=== PATIENT | male | born 1935 | race Caucasian/White ===

== ENCOUNTER 2025-04-07 07:04 | Outpatient (REF) | payer SELFPAY ==
--- OUTSIDE RECORDS SUMMARY | 2025-04-02 13:16 | XMS_ITS | Encounter Summary ---
Author Organization [facility] Address [address] [place] [address] Care Team Providers Care Immunology Teacher Name Role Phone Clemencia Gorman MD Primary Care Provider Reason for Visit * Reason Comments Weakness - Generalized Encounter Details Date Type Department Care Team (Late st Contact Info) Description 04/02/2025 1:16 PM EST - 04/06/2025 3:44 PM EST Emergency [facility] Emergency [address] [place] [id number] Volodymyr Zavala MD [address] [address] Arie Bliss MD [address] [place] [id number] Gee Capone MD [address] [place] [id number] Martha Carvalho MD [address] [place] [id number] Joseph Mishra MD [address] [place] [address] Jose Ritter MD [address] [place] [address] Kalin Caceres MD [address] [place] [address] Generalized weakness (Primary Dx); Hematuria, unspecified type; Aspiration pneumonia of right lower lobe, unspecified aspiration pneumonia type ([facility] V24, [facility] V28); Failure to thrive in adult; Leukopenia, unspecified type; Anemia, unspecified type; Chronic renal failure, stage 3a ([facility] V24, [facility] V28); Alzheimer's dementia without behavioral disturbance, psychotic disturbance, mood disturbance, or anxiety, unspecified dementia severity, unspecified timing of dementia onset ([facility] [place], [facility] V28) Discharge Disposition: Home or Self Care Social History Tobacco Use Types Packs/Day Years Used Date Smoking Tobacco: Former Cigarettes 1.5 Q uit: 04/16/1983 Smokeless Tobacco: Never Alcohol Use Standard Drinks/Week Comments No 11.7 (1 standard drink = 0.6 oz pure alcohol) Housing Instability Answer Date Recorde d Are you worried that in the next 2 months you may not have stable housing? No 04/01/2025 Food Access & Nutrition Answer Date Rec orded Do you have access to a vari ety of food including fruits and vegetables? Yes 04/01/2025 Access to Healthcare Answer Date Record ed Within the last 3 months, ho w many times did you visit the emergency department for your medical care? 1 04/01/2025 Health Literacy Answer Date Recorded How often do you need to hav e someone help you when you read instructions, pamphlets, or other written material from your doctor or pharmacy? Always 04/01/2025 Caregiver: How often do you need to have someone help you when you read instructions, pamphlets, or other written material from your doctor or pharmacy? Not on file 04/01/2025 Financial Risk Answer Date Recorded How hard is it for you to pa y for the very basics like food, housing, medical care, and air conditioning / heating? Not very hard 04/01/2025 Transportation Answer Date Recorded Has the lack of transportati on kept you from meetings, work, or from getting things needed for daily living? No Has the lack of transportati on kept you from medical appointments or from getting medications? No 04/01/2025 Social Isolation Answer Date Recorded How often do you feel lonely or isolated from those around you? Not asked 04/01/2025 Food Risk Answer Date Recorded Within the past 12 months we worried whether our food would run out before we got money to buy more. Never true 04/01/2025 Within the past 12 months th e food we bought just didn't last and we didn't have money to get more. Never true 04/01/2025 Dependent Care Answer Date Recorded Do you need help finding or paying for care for your loved ones. For example, child welfare consultant or elderly care for an older adult? Unable to respond 03/29/2025 Education Answer Date Recorded Do you think completing more education or training, like finishing a GED, going to college, or learning a trade, would be helpful for you? No 04/01/2025 Employment and Income Answer Date Recor ded During the last four weeks, have you been actively looking for work? No 04/01/2025 Living Situation Answer Date Recorded What is your living situation? Unrecognized valu e 04/01/2025 Interpersonal Safety Answer Date Record ed Physical Abuse Unrecognized value 03/29/2025 Verbal Abuse Unrecognized value 03/29/2025 Sex and Gender Information Value Date Recorded Sex Assigned at Male 03/29/2025 6:39 PM EST Legal Sex Male 8:57 PM EST Gender Identity Male 03/29/2025 6:39 PM EST Sexual Orientation Choose not to disclose 2024 6:39 PM EST documented as of this encounter Last Filed Vital Signs Vital Sign Reading Time Taken Comments Blood Pressure 110/71 04/06/2025 2:06 PM EST Pulse 102 04/06/2025 2:06 PM EST Temperature 36.6 C (97.9 F) 04/06/2025 2:06 PM EST Respiratory Rate 18 04/06/2025 2:06 PM EST Oxygen Saturation 100% 04/06/2025 2:06 PM EST Inhaled Oxygen Concentration - - Weight 44.5 kg (98 lb) 04/03/2025 9:50 AM EST Height 170.2 cm (5' 7 ) 04/02/2025 11:52 PM EST Body Mass Index 15.35 04/02/2025 11:52 PM EST documented in this encounter Functional Status * Calculated C-SSRS Risk Score (Lifetime/Recent) Answer Date of Assessment Author No Risk Indicated 04/04/2025 9:49 PM EST Bello Lopez RN * [place] Suicide Severity Rating Scale (Screener/Recent Self-Report) Question Answer Date of Assessment Author 1. Wish to be (Past 1 Month) No 025 9:49 PM Bello Morgan RN 2. Non-Specific Active Suici geremias Thoughts (Past 1 Month) No 04/04/2025 9:49 PM Bello Morgan RN 6. Suicidal Behavior (Lifetime) No 5 9:49 PM Bello Morgan RN documented as of this encounter Discharge Instructions * Attachments The following attachments cannot be sent through Care Everywhere. * Hematuria ([place]) documented in this encounter Medications at Time of Discharge amoxicillin-clavula renato (AUGMENTIN) 500-125 mg per tablet Take 1 tablet by mouth every 12 (twelve) hours for 13 doses. 13 each 5 04/07/20 25 aspirin 81 mg EC tablet Take 1 tablet (81 mg total) by mouth 1 (one) time each day. 30 each 11 5 04/01/20 26 atorvastatin (LIPITOR) 40 mg tablet Take 1 tablet (40 mg total) by mouth at bedtime. 30 each 11 5 03/31/20 26 ipratropium-albuter oL (DUONEB) 0.5-2.5 mg/3 mL nebulizer solution Take 3 mL by nebulization 3 (three) times a day. 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 documented as of this encounter Discharge Disposition Disposition Code Departure Means Destination Comment s Home or Self Care Transfer packet printed and given to EMS, report given. Pt assisted to bedpan prior to transport, had a small amount of urine output. Pt transferred to EMS stretcher, departed ED in no acute distress. Belongings sent with pt documented in this encounter Progress Notes * Lucretia Gastelum RN - 04/06/2025 2:33 PM EST 04/06/25 1432 ED Transition Plan ED Transition Plan Other (Comment) (Assisted Facility) Transportation Transportation at discharge Ambulance Company providing transportation [place] What day is the transport expected? 04/06/25 What time is the transport expected? 1530 Final Discharge Disposition Assisted Facility ([facility]) Pt will discharge to [facility] at 3:30pm via [place] ambulance. Pt approved for [facility]p waiver through [facility]. Updated marium Sargent/Dr. Caceres and nurse provided number for nurse report. * Stephen Villanueva MD - 04/06/2025 2:09 PM EST The patient is an 89-year-old who reported feeling very weak during the physical therapy evaluation. He was able to complete bed mobility but was unable to transition to a full [id number]. He required minimal assistance for transfers and could stand for only about five seconds before his knee buckled. He was able to stand three times but could not take any major steps. Given the findings, subacute rehab focusing on strengthening is recommended. * Lucretia Gastelum RN - 04/06/2025 10:56 AM EST [facility] is accepting of patient pending [facility] approval. Message left for son Spoke withmarium Montilla who is accepting of bed offer. Informed [facility] does not have male bed today. Emailsent to Chana PARKERfinancial counselor for [facility] with information on accepting bed offer for [facility]. * Kalin Caceres MD - 04/06/2025 10:46 AM EST S. Case discussed with Dr. Bliss at change of shift, patient in the emergency department for 93-1/2hours, signed out pending continuation of case management for possible short-term rehab disposition. Family are currently weighing options. No acute events during emergency department course. 89-year-old male with Alzheimer's dementia, brought to the emergency department by ambulance under conditions of failure to thrive, recent admission for lower lobe pneumonia with NSTEMI and rhabdomyolysis. O. Examination as documented, vital signs stable and normal. Laboratory studies reviewed, CBC and BMP measured yesterday reveal leukopenia with nonspecific anemia, renal insufficiency stage IIIa. No other clinically significant abnormalities. Abnormal urinalysis without leukocyte esterase or nitrites. Troponin I, lactic acid, magnesium, BNP are all normal. XR Chest 1 View Final Result Stable radiographic appearance of the chest. -------- FINAL REPORT -------- Dictated By: Kevin Kyle Dictated Date: 04/04/2025 10:52 ET Assigned Physician: Kevin Kyle Reviewed and Electronically Signed By: Kevin Kyle Signed Date: 04/04/2025 10:54 ET Workstation ID: [id number] Transcribed By: Self Edit Transcribed Date: 04/04/2025 10:52 ET XR Chest 1 View Final Result FINDINGS/IMPRESSION: Small right pleural effusion with patchy opacities in the right lung could represent infectious/inflammatory process. The left lung is grossly clear. Osteopenia and degenerative changes. -------- FINAL REPORT -------- Dictated By: Augie Jerome Dictated Date: 04/02/2025 15:58 ET Assigned Physician: Augie Jerome Reviewed and Electronically Signed By: Augie Jerome Signed Date: 04/02/2025 16:10 ET Workstation ID: [id number] Transcribed By: Self Edit Transcribed Date: 04/02/2025 16:09 ET A. Impression: 89-year-old male with dementia, failure to thrive, right pleural effusion, opacitieson right lung x-ray, chronic unchanged leukopenia, nonspecific anemia, and renal insufficiency. No hypoxia, tachypnea, increased work of breathing, or other evidence for pneumonia. 3 x-rays performedsince 03/29/2025 are essentially unchanged, setting of emphysema. Patient may benefit from respiratory virus panel though no hypoxia or fever documented. This does not appear to be immediately indicated. Awaiting completion of case management intervention for short-term rehabilitation and disposition. P. Supportive care is ongoing, disposition is pending. 1431: [facility] at 3:30 PM. Supportive care is ongoing, transportation is pending. Social Determinants of Health: Medicare/Medicaid recipient, access to [facility] may be impacted. * Jacqueline Luz, FLORENCIA - 04/06/2025 10:17 AM EST Images from the original note were not included. Speech Language Pathology [facility] WILDLIFE ECOLOGIST TREATMENT NOTE NAME: Ramon Herr DATE OF : 1935 [facility] Pt ID by: Self, Full Name and DATE: 04/06/25 RECOMMENDATIONS: DIET SOLIDS RECOMMENDATIONS: IDDSI Level 4 Pureed Solid DIET LIQUIDS RECOMMENDATIONS: Thin liquids ASPIRATION RISK: Risk for Aspiration: Mild Recommendations: Dysphagia treatment (modified diet with swallow strategies, oral care) Diet Solids Recommendation: IDDSI Level 4 Pureed Solid Diet Liquids Recommendation: Thin liquids Liquid Administration Via: Spoon, Cup, Straw Supervision Level: One to one assist with meals Compensatory Swallowing Strategies: Upright as possible for all oral intake, Alternate solids and liquids, Small bites/sips (consistent oral care) Recommended Medication Route: PO (crushed or whole in puree) Recommended Medication Administration: Crushed (or whole in puree) IMPRESSIONS: WILDLIFE ECOLOGIST ASSESSMENT: WILDLIFE ECOLOGIST Assessment Results: Swallowing impairments Dysphagia Diagnosis: Mild oral stage dysphagia, Mild pharyngeal stage dysphagia Prognosis: Fair Evaluation/Treatment Tolerance: Patient tolerated treatment well Comments: Pt with limited interest in PO which is consistent with family reports. Although no coughor vocal quality with 4oz thin liquids and 3tsp of puree, pt is at risk for aspiration and complications due to multiple medical issues, dependence for feeding and oral care, decreased ambulation. Ptdiet changed to thins but puree to remain as solids at this time to facilitate ease of swallow and conserve energy. Medical Staff Made Aware: Yes Comments: RN TIME CALCULATION: WILDLIFE ECOLOGIST Start Time: 919 WILDLIFE ECOLOGIST Stop Time: 939 WILDLIFE ECOLOGIST Time Calculation (min): 20 min Nurse Assistant Required: No ADMISSION DIAGNOSIS: No admission diagnoses are documented for this encounter. FAMILY/CAREGIVER PRESENT: Yes SUBJECTIVE SUBJECTIVE: Chart reviewed and cleared by RN for WILDLIFE ECOLOGIST session. RESPIRATORY STATUS: Room air PRECAUTIONS: Swallow Precautions: Aspiration, Thickened Liquids, Modified Diet MENTAL STATUS Alert Responsive Cooperative OBJECTIVE PAIN: Pain Assessment: No/denies pain OXYGEN THERAPY: Oxygen Therapy: None (Room air) TREATMENTS: SWALLOW FUNCTION: Diet Recommendations: IDDSi 4/0 ASPIRATION RISK: Risk for Aspiration: Mild Recommendations: Dysphagia treatment (modified diet with swallow strategies, oral care) Diet Solids Recommendation: IDDSI Level 4 Pureed Solid Diet Liquids Recommendation: Thin liquids Liquid Administration Via: Spoon, Cup, Straw Supervision Level: One to one assist with meals Compensatory Swallowing Strategies: Upright as possible for all oral intake, Alternate solids and liquids, Small bites/sips (consistent oral care) Recommended Medication Route: PO (crushed or whole in puree) Recommended Medication Administration: Crushed (or whole in puree) SPEECH AND LANGUAGE: CURRENT DIET ORDERED: Dietary Orders (From admission, onward) Start Ordered 04/06/25 0942 Adult diet [facility]; Modified Consistencies, Dysphagia and Liquid Diets, Cardiac Options; IDDSI Level 4 Pureed; Cardiac (2 gm Na, Low Sat Fat); Auto-Select Meals(Order Panel) Diet effective now Question Answer Comment Location [facility] Diet Type (req) Modified Consistencies, Dysphagia and Liquid Diets Diet Type (req) Cardiac Options Modified Consistencies, Dysphagia and Liquid Diets IDDSI Level 4 Pureed Cardiac Options Cardiac (2 gm Na, Low Sat Fat) Is the patient able to participate in meal ordering? Auto-Select Meals 04/06/25 0944 PLAN WILDLIFE ECOLOGIST PLAN: Treatment/Interventions: Swallow function WILDLIFE ECOLOGIST Plan: Skilled WILDLIFE ECOLOGIST WILDLIFE ECOLOGIST Frequency: (1 f/u) WILDLIFE ECOLOGIST - Evaluation Status: Complete Diet Recommendations: IDDSi 4/0 DISCHARGE RECOMMENDATIONS Ongoing Skilled Speech-Language Pathology (WILDLIFE ECOLOGIST) services at next level of care. EDUCATION EDUCATION: Education Documentation Modified Diet Training, taught by FLORENCIA Waldrop at 04/06/2025 10:16 AM. Learner: Family, Patient Readiness: Acceptance Method: Explanation, Demonstration Response: Verbalizes Understanding, Needs Reinforcement Education Comments No comments found. GOALS GOALS: Encounter Problems Encounter Problems (Active) Template: Speech Therapy Problem: Swallowing Dates: Start: 04/04/25 Goal: Patient will tolerate the least restrictive diet consistency to allow for safe consumption ofdaily meals Dates: Start: 04/04/25 Expected End: 04/11/25 Encounter Problems (Resolved) There are no resolved problems. FLORENCIA Waldrop 04/06/2025 * Lucretia Gastelum RN - 04/06/2025 10:12 AM EST Met with jayjay Montilla and Arie at bedside. Updated pt is part of [facility] awaiting if SNF waiver facilities [facility] are able to offer bed. Jayjay are considering private pay for m[facility]p if [facility] facilities are unable to offer. [facility] Provided sons with [facility] facility profile sheet with medicare compare website information. * Celena Ledesma, PT - 04/06/2025 9:00 AM EST [facility] Physical Therapy Treatment PT Discharge Recommendations: [facility] facility placement Staff Recommendations for safe patient handling: Min A with walker 3-5' Precautions Medical Precautions: Fall Risk Safety Interventions: Side rails up x1, Bed alarm, Call childs within reach Swallow Precautions: Aspiration, Thickened Liquids, Modified Diet RUE Weight Bearing Status: Full LUE Weight Bearing Status: Full RLE Weight Bearing Status: Full LLE Weight Bearing Status: Full History of Present Illness: Patient is a 89 y.o. male admitted to [facility] on 04/02/2025 with: Problem List[1] Fall prevention education provided including use of call light in hospital, use of appropriate assistive device, safe mobility techniques, and safety measures at home. Continue PT as per POC. Subjective I am really weak Objective 04/06/25 0900 PT Last Visit PT Received On 04/06/25 PT Time Calculation PT Start Time 0900 PT Stop Time 0930 PT Time Calculation (min) 30 min Precautions Medical Precautions Fall Risk Safety Interventions Side rails up x1;Bed alarm;Call childs within reach Swallow Precautions Aspiration;Thickened Liquids;Modified Diet RUE Weight Bearing Status Full LUE Weight Bearing Status Full RLE Weight Bearing Status Full LLE Weight Bearing Status Full Pain Assessment Pain Assessment No/denies pain Pain Score 0 - No pain Cognition Overall Cognitive Status WFL Bed Mobility Rolling Right Assistance Minimum assistance Rolling Left Assistance Minimum assistance Sitting to Lying Assistance Moderate assistance Lying to Sitting Assistance Moderate assistance Transfers Sit to Stand Assistance Minimum assistance Chair/Bed to Chair/Bed Transfer Assistance Moderate assistance Ambulation Walking Assistance Minimum assistance Device Rolling walker Pattern (decreased step length B and nee begin to buckle as he fatigues) Distance Ambulated (ft) 5 Procedures Procedures Gait Training Gait Training Gait Training Time Entry 30 Gait Training Activity 1 The pt just completed a breathing treatment prior to the rx session. He was able to complete bed mobility with mod A and bed rail. He was then able to complete sit to stand transfers with min A. . Initially upon standing he stood for 5 seconds and then knees buckled and he sat. He then sttod again x3 with min A and was able to side step along the edge of the bed with walker and min A. He became very SOB requiring a seated rest break after each ambulation PT Assessment PT Assessment Results Decreased strength;Decreased endurance Prognosis Good Medical Staff Made Aware Yes Plan Treatment/Interventions Functional transfer training;LE strengthening/ROM;Endurance training;Bed mobility;Gait training PT Plan Skilled PT PT Frequency 2-5 days per week PT Discharge Recommendations [facility] facility placement PT - Evaluation Status Complete Procedure/Treatment: Procedures Procedures: Gait Training Gait Training Gait Training Time Entry: 30 Gait Training Activity 1: The pt just completed a breathing treatment prior to the rx session. He was able to complete bed mobility with mod A and bed rail. He was then able to complete sit to stand transfers with min A. . Initially upon standing he stood for 5 seconds and then knees buckled and hesat. He then sttod again x3 with min A and was able to side step along the edge of the bed with walker and min A. He became very SOB requiring a seated rest break after each ambulation Patient left lying supine in bed. RN notified of pt. status, location, response to treatment, and therapy recommendations. Physical Therapy Assessment/Plan PT Assessment PT Assessment Results: Decreased strength, Decreased endurance Prognosis: Good Evaluation/Treatment Tolerance: Patient limited by fatigue Medical Staff Made Aware: Yes Plan Treatment/Interventions: Functional transfer training, LE strengthening/ROM, Endurance training, Bed mobility, Gait training PT Plan: Skilled PT PT Frequency: 2-5 days per week PT Discharge Recommendations: [facility] facility placement PT - Evaluation Status: Complete Physical Therapy Goals/Education Encounter Problems Encounter Problems (Active) There are no active problems. Encounter Problems (Resolved) There are no resolved problems. Education Documentation Home Exercise Program, taught by Celena Ledesma PT at 04/06/2025 10:04 AM. Learner: Patient Readiness: Eager Method: Explanation Response: Verbalizes Understanding, Needs Reinforcement Comment: The pt was educated on the neeed to get OOB daily to help increase mobility Mobility Training, taught by Celena Ledesma PT at 04/06/2025 10:04 AM. Learner: Patient Readiness: Eager Method: Explanation Response: Verbalizes Understanding, Needs Reinforcement Comment: The pt was educated on the neeed to get OOB daily to help increase mobility Education Comments No comments found. Celena Ledesma, PT [1] Patient Active Problem List Diagnosis Alcohol abuse, in remission Blood glucose elevated CKD (chronic kidney disease) stage 3, GFR 30-59 ml/min (CMS/HCC V24, CMS/HCC V28) Compression fracture of thoracic vertebra (CMS/HCC V24, CMS/HCC V28) Diverticulosis Leukopenia Macrocytic anemia with vitamin B12 deficiency Osteoarthritis of lumbar spine Osteopenia Polymyalgia rheumatica (CMS/HCC V24) Positive JOJO (antinuclear antibody) NSTEMI (non-ST elevated myocardial infarction) (CMS/HCC V24, CMS/HCC V28) * Lucretia Gastelum RN - 04/06/2025 8:17 AM EST Per Chana financial counselor for [facility] pt would qualify for SNF waiver program. Participating SNFs are [facility] referrals made via [facility]. [facility] no longer participating in waiver. * Linda Cárdenas RN - 04/06/2025 8:05 AM EST Pt is refusing meal tray at this time. This RN educated pt on the importance of eating, pt still declining to eat at this time. Pt is agreeing to take sips of Ensure. This RN also attempted to pull pt's ordered nebulizer tx from [facility] but was unable to at this time d/t med already being dispensed to another staff member. * Lucretia Gastelum RN - 04/06/2025 7:43 AM EST After review of patient record PT eval recommending rehab 04/03/25. Email sent to [facility] to verify if patient would qualify for Assisted Facility waiver. Pt without qualifying stay per previous [facility] documentation. * Elisha Mckeon RN - 04/05/2025 6:45 PM EST Full bed change and bed bath done for patient at this time. New clean brief applied to patient at this time. Patient sat in upright position and attempted to drink some of his ensure, but is unable to tolerate more than 2-3 sips. Patient states he does not want anything else and would like to rest.Patient placed in position of comfort at this time. * Dede Lilly RN - 04/05/2025 4:46 PM EST Son Arie present and given list of private home care agencies. His brother was given the LTC policy and will be calling the insurance company tomorrow. Aware that [facility]FRE[facility] referral [facility] for home care services. * Dede Lilly RN - 04/05/2025 3:36 PM EST landscaping manager spoke with marium Montilla regarding plan of care. He will be calling creative resource manager office tomorrow between 9a and 11a regarding to discuss their families decision. I did explain the role of a visiting nurse and home PT/OT services. Family also informed that they can call their insurance company for their father's exterminator helper care policy regarding coverage for licensed home health aide services in the home. Family will also consider private pay in a short term rehab as well. Roldan was madeaware that most faculties will require one month upfront payment which averages around $12k and if length of stay is less than one month the monies will be returned. Roldan was made aware that a plan of care needs to be carried out without prolonging an ED stay unnecessarily or a HINN1(explained thisform to son) will be issued. * Dede Lilly RN - 04/05/2025 2:11 PM EST landscaping manager spoke with marium Montilla and aware there is just no criteria for admission to floor. He will be speaking with his mother and brother regarding possible private pay for subacute rehab. Awaiting return call for discussion. * Dede Lilly RN - 04/05/2025 1:33 PM EST Per nursing noted hypothermia last night per nursing(patient was placed on a warming blanket) and repeat labs ordered by provider. * Martha Carvalho MD - 04/05/2025 1:03 PM EST Ramon Herr Patient remains with case management working on placement. It appears [facility]. Repeat labs were obtained today due to leukopenia day prior for trending. No significant change today. Continue to monitor temperature due to hypothermic episode yesterday, no additional hypothermia noted overnight. Unfortunately there continues to be no indication for acute hospitalization at this time. Family todiscuss further and make plan tomorrow for disposition. ICD-10-CM ICD-9-CM 1. Generalized weakness R53.1 780.79 2. Hematuria, unspecified type R31.9 599.70 3. Aspiration pneumonia of right lower lobe, unspecified aspiration pneumonia type (CMS/[facility] V24, CMS/[facility] V28) J69.0 507.0 * Elisha Mckeon RN - 04/05/2025 8:32 AM EST Patient able to tolerate taking pills with applesauce for this RN. No coughing noted after swallowing the applesauce and pills at this time. * Elisha Mckeon RN - 04/05/2025 8:00 AM EST Patient provided with breakfast meal tray at this time, but states he does not feel like eating. This RN educated patient on importance of eating, but patient still denies and states he does not wantto eat at this time. * Jose Ritter MD - 04/05/2025 8:00 AM EST HPI Chief Complaint Patient presents with Weakness - Generalized Care of patient signed out to me by Dr. Bliss at 8 AM Gina Coma Scale Score: 15 Patient History Medical History[1] Surgical History[2] Family History[3] Social History Tobacco Use Smoking status: Former Current packs/day: 0.00 Average packs/day: 1.5 packs/day Types: Cigarettes Quit date: 04/16/1983 Years since quittin.0 Smokeless tobacco: Never Substance Use Topics Alcohol use: No Alcohol/week: 11.7 standard drinks of alcohol Drug use: No Review of Systems Review of Systems Physical Exam ED Triage Vitals Temp Heart Rate Resp BP 04/02/25 1329 04/02/25 1329 04/02/25 1329 04/02/25 1329 36.6 ??C (97.9 ??F) 78 25 127/80 SpO2 Temp Source Heart Rate Source Patient Position 04/02/25 1329 04/02/25 1329 04/02/25 1329 04/02/25 1329 97 % Oral Brachial Sitting BP Location FiO2 (%) 04/02/25 1539 -- Left arm Physical Exam ED Course & MDM ED Course as of 04/05/25 1115 Alyssa Apr 02, 2025 1735 Bun/Cr at baseline, pt has chronic CKD, mild anemia, no signicant chagnes. UA, will defer tx. [JL] 1741 CXR IMPRESSION: FINDINGS/IMPRESSION: Small right pleural effusion with patchy opacities in the right lung could represent infectious/inflammatory process. The left lung is grossly clear. Osteopenia and degenerative changes. [JL] 1743 Cbc at baseline, at this point PNA does not appear worse, will hold for subacute, pt was givenIV hydration [JL] 1926 Pt pending Case Management eval for subacute rehab placement [TW] Fri Apr 03, 2025 0222 S/o: Pending CM for subacute rehab. [BM] Sat Apr 04, 2025 0446 I, Dr. Zavala ,took over the case from the outgoing physician. Reviewed labs history and made medication adjustments as needed. Nurse informed that the patient had some small amount of blood in his briefs. However he we will check to make sure there is no retention however I do not see any signs of significant need for admission will refer to urology. Unless there is retention [JL] Jen Apr 05, 2025 0128 Stable labs pending placement no acute complaint during stay in my shift [MZ] ED Course User Index [BM] Gee Capone MD [JL] Volodymyr Zavala MD [MZ] Joseph Mishra MD [TW] Arie Bliss MD Clinical Impressions as of 04/05/25 1115 Generalized weakness Hematuria, unspecified type Aspiration pneumonia of right lower lobe, unspecified aspiration pneumonia type (CMS/HCC V24, [facility] V28) Medical Decision Making Procedures [1] Past Medical History: Diagnosis Date Alzheimer's dementia ([facility] V24, [facility] V28) BPH (benign prostatic hyperplasia) 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 DX: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 CKD (chronic kidney disease), stage III ([facility] V24, [facility] V28) Hematuria DX:Hematuria; COMMENT: MICROSCOPIC, w/u neg 06/19 History of basal cell carcinoma 12/11/2013 DX:History of basal cell carcinoma; COMMENT: 08/14, left nasal ala Polymyalgia rheumatica ([facility] V24) 06/12/2005 DX:Polymyalgia rheumatica ([facility]); COMMENT: Onset Mar 2005 JOJO Pos(2005) Rash and other nonspecific skin eruption 05/22/2005 DX:Rash and other nonspecific skin eruption; COMMENT: large area of skin removed from upper right arm 1997. 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 Jose Ritter MD 04/05/25 1115 Jose Ritter MD 04/05/25 1116 * Dede Lilly RN - 04/04/2025 11:36 AM EST Son at bedside and aware that patient is declined by [facility]. Provider reviewing records and ordered repeat labs. * FLORENCIA Larson - 04/04/2025 11:19 AM EST Images from the original note were not included. Speech Language Pathology [facility] WILDLIFE ECOLOGIST BEDSIDE SWALLOW EVALUATION NAME: Ramon Herr DATE OF : 1935 ROOM: / RECOMMENDATIONS Risk for Aspiration: (At risk) Recommendations: Dysphagia treatment Diet Solids Recommendation: IDDSI Level 4 Pureed Solid Diet Liquids Recommendation: IDDSI Level 2 Mildly Thick (Allow small sips water/ice chips PRN afteroral care) Liquid Administration Via: Cup Supervision Level: Supervision with meals Compensatory Swallowing Strategies: Upright as possible for all oral intake, Swallow 2 times per bite/sip, Small bites/sips, No straws, Slow rate of intake Recommended Medication Route: PO Recommended Medication Administration: With food (puree) WILDLIFE ECOLOGIST ASSESSMENT: WILDLIFE ECOLOGIST Assessment Results: Swallowing impairments Evaluation/Treatment Tolerance: Patient tolerated treatment well Comments: Pt presenting w overall weakness and oropharyngeal dysphagia secondary to acuity of illness. Pt w recent pna, also ~5 years ago per family report. Family reports Pt's swallow has been declining. Overt s aspiration w thin liquids at bedside. Overall diminished laryngeal elevation, imprecise timing of swallow. Increased oral transit time. Pt expressed dislike of minced & moist/ solid consistancy trials. Rec IDDSI 4/2 puree and mildly thick liquid. Dt Pt request for water, allow small sips thin water PRN w supervision only after oral care. Medical Staff Made Aware: Yes Comments: RN and note sent to MD Pt ID by: Self, Full Name WILDLIFE ECOLOGIST Received On: 04/04/25 Nurse Assistant Required: No TIME IN: 1000 TIME OUT: 1045 TOTAL TIME: 45 min SUBJECTIVE: Chart reviewed and patient cleared by RN for swallow evaluation. Patient seen at bedside in ED. Family/ adult children present. Reduced speech intelligibility primarily dt hoarseness/ decreased volume. Pt on room air. Pt recently dc from hospital and readmitted. Discussed w MD and education provided w family. Family eager to participate in education/strategies. PRIOR LEVEL OF FUNCTIONING: Pt was seen on 03/30/25 by WILDLIFE ECOLOGIST and rec IDDSI 6/0-- family confirms baseline but report worsening. Pt's son reports that the Pt, himself, and another child all cough w meals which has been happening as long as he can remember . Pt w recent pna. SWALLOW SCREEN: Active Problems: No Active Problems: There are no active problems currently on the Problem List. Please update the Problem List and refresh. Resolved Problems: * No resolved hospital problems. * No admission diagnoses are documented for this encounter. No admission procedures for hospital encounter. Past Medical History Past Surgical History Medical History[1] Surgical History[2] IMAGING RESULTS MRI Brain No results found for this or any previous visit. CT Head Results for orders placed during the hospital encounter of 03/29/25 CT Head wo Contrast Narrative INDICATION: Generalized weakness, fall Technique: Axial images were obtained from the skull base to the vertex without contrast enhancement. Coronal and sagittal reformats obtained. Dose reduction technique: ASIR (Adaptive statistical iterative reconstruction) Dose: total exam DLP 808 mGY per cm Comparison: Compared to multiple prior studies most recent from August 21, 2022. FINDINGS: Intracranial contents: No acute intracranial hemorrhage, midline shift or mass- effect. The ventricles, sulci, sylvian fissures and basilar cisterns are symmetrically enlarged most consistent with atrophy. Mild periventricular white matter changes are most consistent with small vessel ischemic disease. There are no abnormal intra or extra-axial fluid collections. Bony structures/soft tissues: Within normal limits for the patient's age. Sinuses: paranasal sinuses are clear. Impression No evidence of acute intracranial process on noncontrast head CT. Atrophy and age-related changes. No significant change from the prior study. -------- FINAL REPORT -------- Dictated By: Lorena Dewey Dictated Date: 03/29/2025 11:00 ET Assigned Physician: Lorena Dewey Reviewed and Electronically Signed By: Lorena Dewey Signed Date: 03/29/2025 11:01 ET Workstation ID: [id number] Transcribed By: Self Edit Transcribed Date: 03/29/2025 11:00 ET Chest Portable Results for orders placed during the hospital encounter of 04/02/25 XR Chest 1 View Narrative PROCEDURE: AP chest radiograph. HISTORY: reeval pna. COMPARISON: 04/02/2025. FINDINGS: Mildly hypoventilatory inspiratory effort. Stable blunting of the right costophrenic angle, pleuralthickening or a small effusion. Coarse markings throughout both lungs appear similar to the previous study. These are most confluent in the right perihilar region. No pneumothorax. Bones appear demine ralized. Degenerative changes of the spine with a dextroscoliosis at the thoracolumbar junction. Mild degenerative changes of the shoulders. Atherosclerotic calcifications of the aorta. Impression Stable radiographic appearance of the chest. -------- FINAL REPORT -------- Dictated By: Kevin Kyle Dictated Date: 04/04/2025 10:52 ET Assigned Physician: Kevin Kyle Reviewed and Electronically Signed By: Kevin Kyle Signed Date: 04/04/2025 10:54 ET Workstation ID: [id number] Transcribed By: Self Edit Transcribed Date: 04/04/2025 10:52 ET Chest 2 View Results for orders placed during the hospital encounter of 03/29/25 XR Chest 2 Views Narrative INDICATION: Chest pain FINDINGS: Single portable AP view of the chest obtained. Compared to multiple prior studies most recent from August 21, 2022. Emphysematous changes. Increased airspace disease within the right perihilar upper lobe as well as right infrahilar lower lobe may represent infiltrates. Small right pleural effusion suspected. No pneumothorax or pneumomediastinum. Heart normal in size and shape. Bony structures are grossly intact and normal for the patient's age. Impression Severe emphysematous changes with right upper and lower lobe infiltrates and small right pleural effusion. -------- FINAL REPORT -------- Dictated By: Lorena Dewey Dictated Date: 03/29/2025 12:25 ET Assigned Physician: Lorena Dewey Reviewed and Electronically Signed By: Lorena Dewey Signed Date: 03/29/2025 12:26 ET Workstation ID: [id number] Transcribed By: Self Edit Transcribed Date: 03/29/2025 12:[address] Results for orders placed during the hospital encounter of 03/29/25 CT Chest wo Contrast Narrative INDICATION: SOB, abn CXR, heart failure suspected Exam: Unenhanced CT chest with multiplanar reformats. Comparison: Same day chest x-ray. Findings: Lungs reveal dependent consolidative opacity within the right lower lobe, concerning for pneumonia. No other focal consolidation. A 4-5 mm right middle lobe nodule is noted (4; 121). No other pulmonary nodules or parenchymal lesions. There are moderate paraseptal and centrilobular emphysematous changes. There is mucous plugging within right lower lobe. There is dependent debris within the trachea (for example, 4; 47), raising concern for aspiration. Remaining airways are generally patent. No pneumothorax. There is cystic change or bronchiectasis involving the posterior aspect of the right lower lobe. No mediastinal or hilar masses or adenopathy. There appears to be a tiny right pleural effusion. No left effusion or pericardial effusion. Images below the diaphragms reveal no acute abnormalities. Osseous structures reveal no destructive osseous lesions. There are anterior compression deformities at T11 and T12, and to a lesser degree L2, which appear remote with no definable fracture lines or paravertebral stranding. Impression Impression: 1. Dependent consolidative opacity within right lower lobe concerning for aspiration or pneumonia. There is right lower lobe endobronchial mucous plugging as well as debris within the trachea, increasing risk for aspiration. 2. Additional chronic findings as described above. This document has been electronically signed by: Christopher Howard MD on 03/29/2025 17:08:25 ALLERGIES: Allergies[3] OBJECTIVE OXYGEN THERAPY: Oxygen Therapy: None (Room air) PAIN ASSESSMENT: TRACHEOSTOMY: DYSPHAGIA SYMPTOMS REPORTED: Coughing FEEDING METHOD: To Be Assessed ENDURANCE DURING MEALS: To Be Assessed MENTAL STATUS: Alert Responsive Cooperative SWALLOW BASELINE ASSESSMENT: CURRENT DIET: Dietary Orders (From admission, onward) Start Ordered 04/03/25 0634 Adult diet [facility]; Modified Consistencies, Dysphagia and Liquid Diets, Cardiac Options; IDDSI Level 6 Soft & Bite Sized; Cardiac (2 gm Na, Low Sat Fat); Auto-Select Meals (Order Panel) Diet effective now Question Answer Comment Location [facility] Diet Type (req) Modified Consistencies, Dysphagia and Liquid Diets Diet Type (req) Cardiac Options Modified Consistencies, Dysphagia and Liquid Diets IDDSI Level 6 Soft & Bite Sized Cardiac Options Cardiac (2 gm Na, Low Sat Fat) Is the patient able to participate in meal ordering? Auto-Select Meals 04/03/25 0633 MOTOR SPEECH: Labial ROM: Within Functional Limits Labial Strength: Reduced (anterior air escape) Lingual Appearance: Dry, [place] Lingual ROM: Within Functional Limits Lingual Symmetry: Within Functional Limits Vocal Quality: Exceptions to WFL Hoarse: Severe Intelligibility: Intelligibility reduced Intelligibility Ratin%-80% CONSISTENCIES ASSESSED Yes Thin Presentation: Cup, Straw, Therapist fed Oral: Within functional limits Pharyngeal: Delayed swallow, Cough - immediate Amount: 5 Comments: Pt consuming thin liquid via open both cup and straw sips. Adequate labial seal. Delayed swallow palpable, diminished laryngeal elevation. Immediate cough w straw sip. Improved but still impaired sips w open cup. Delayed coughin and SOB. [place]/Mildly Thick Presentation: Cup Oral: Within functional limits Pharyngeal: Decreased laryngeal elevation Amount: 10 Comments: Pt consuming mildly thick liquids via open cup sips. Adequate labial seal. Increased oraltransit time. Laryngeal elevation diminished. Fully cleared oral cavity, no coughing, throat clearing. Baseline vocal quality Puree Presentation: Therapist fed, Spoon Oral: Within functional limits Pharyngeal: Decreased laryngeal elevation Amount: 8 Comments: Pt consuming puree via tsp. Adequate labial seal, oreal transit. Laryngeal elevation diminished. Fully cleared oral cavity. Immediate baseline vocal quality, no coughing or throat clearing Ground/Minced & Moist/ Moist Ground Presentation: Spoon Oral: Oral holding, Reduced bolus management, Impaired Mastication Pharyngeal: Decreased laryngeal elevation, Absent swallow Amount: 2 Comments: Pt consuming minced & moist. Reduced bolus manipulation, impaired mastication (also note limited dentition). Multiple swallows palpable, diminished 1x. Following trial w oral holding, expelled the bolus. No overt s/sx aspiration COGNITION: WILDLIFE ECOLOGIST ASSESSMENT: WILDLIFE ECOLOGIST Assessment Results: Swallowing impairments Evaluation/Treatment Tolerance: Patient tolerated treatment well Comments: Pt presenting w overall weakness and oropharyngeal dysphagia secondary to acuity of illness. Pt w recent pna, also ~5 years ago per family report. Family reports Pt's swallow has been declining. Overt s aspiration w thin liquids at bedside. Overall diminished laryngeal elevation, imprecise timing of swallow. Increased oral transit time. Pt expressed dislike of minced & moist/ solid consistancy trials. Rec IDDSI 4/2 puree and mildly thick liquid. Dt Pt request for water, allow small sips thin water PRN w supervision only after oral care. Medical Staff Made Aware: Yes Comments: RN and note sent to MD PLAN OF CARE WILDLIFE ECOLOGIST PLAN Treatment/Interventions: Swallow function WILDLIFE ECOLOGIST Plan: Skilled WILDLIFE ECOLOGIST WILDLIFE ECOLOGIST Frequency: 2-5 days per week WILDLIFE ECOLOGIST - Evaluation Status: Complete Diet Recommendations: IDDSI 4/2 EDUCATION Education Documentation Modified Diet Training, taught by Neyda Ayala, WILDLIFE ECOLOGIST at 04/04/2025 11:19 AM. Learner: Family, Patient Readiness: Acceptance Method: Explanation Response: Verbalizes Understanding Education Comments No comments found. GOALS Encounter Problems Encounter Problems (Active) Template: Speech Therapy Problem: Swallowing Dates: Start: 04/04/25 Goal: Patient will tolerate the least restrictive diet consistency to allow for safe consumption ofdaily meals Dates: Start: 04/04/25 Expected End: 04/11/25 Encounter Problems (Resolved) There are no resolved problems. 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 CKD (chronic kidney disease), stage III ([facility] V24, [facility] V28) Hematuria DX:Hematuria; COMMENT: MICROSCOPIC, w/u neg 06/19 History of basal cell carcinoma 12/11/2013 DX:History of basal cell carcinoma; COMMENT: 08/14, left nasal ala Polymyalgia rheumatica ([facility] V24) 06/12/2005 DX:Polymyalgia rheumatica ([facility]); COMMENT: Onset Mar 2005 JOJO Pos(2005) Rash and other nonspecific skin eruption 05/22/2005 DX:Rash and other nonspecific skin eruption; COMMENT: large area of skin removed from upper right arm 1997. 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 DX:Unspecified inflammatory polyarthropathy; COMMENT: involves right wrist and hand JOJO +; RF neg Lyme Ab neg, anti-DNA neg [2] Past Surgical History: Procedure Laterality Date COLONOSCOPY 03/19/08 PROCEDURE: HISTORICAL COLONOSCOPY; COMMENT: diverticulosis, Dr Brandon OTHER SURGICAL HISTORY Left 02/17/98 PROCEDURE: HISTORY OTHER; COMMENT: cutaneous B cell lymphoma OTHER SURGICAL HISTORY 09/03/2000 PROCEDURE: HISTORY OTHER; COMMENT: basal cell nose TONSILLECTOMY PROCEDURE: HISTORICAL TONSILLECTOMY [3] No Known Allergies * Martha Carvalho MD - 04/04/2025 9:32 AM EST Ramon Herr Today patient remains pending inpatient rehab. Awaiting response from [facility]. Patient with ongoing difficulty with swallowing, was evaluated by speech and swallow while hospitalized. Son feels like its gotten worse, states he can hardly drink water. Patient has had poor appetite for many months and appears cachectic with poor muscle mass. He does drink some ensures. Patient denies complaints for me today. He is generally weak on exam. He is able to move all his extremities fairly equally. Due to concern of worsening dysphagia, we will put an order for repeat swallow eval, though unclearif coverage over the weekend. Will get repeat chest x-ray, repeat labs today to assess for further medical needs. Labs today with stable chest x-ray, mild leukopenia, troponin continues to downtrend, no other acute changes. Patient with new WILDLIFE ECOLOGIST eval: Rec IDDSI 4/0 puree solids and mildly thick liquids. Allow small sips thin water PRN only after oral care. No straws - updated diet order Patient with hypothermic temperature, put with warm blankets. Requested for hospitalist Dr. Blair to evaluate for possible admission. Ultimately was deemed that patient should have temperature monitored but currently does not seem to require acute inpatient care. ICD-10-CM ICD-9-CM 1. Generalized weakness R53.1 780.79 2. Hematuria, unspecified type R31.9 599.70 3. Aspiration pneumonia of right lower lobe, unspecified aspiration pneumonia type (CMS/HCC V24, CMS/HCC V28) J69.0 507.0 * Dede Lilly RN - 04/04/2025 8:18 AM EST Chart uploaded for review by [facility]. [facility] referral under MD review. * Radha Narayanan, PT - 04/03/2025 2:00 PM EST [facility] Physical Therapy Evaluation & Treatment PT Discharge Recommendations: Inpatient rehab facility placement Staff Recommendations for safe patient handlin person Flory to [place] about 20 ft with wwalker, high fall risk AM-PAC 6 Clicks Scoring Form: Unable: 1 A Lot: 2 A Little: 3 None: 4 How much difficulty does the patient currently have? Turning over in bed (including adjustment of bedclothes, sheets, and blankets) [] [] [x] [] Sitting down on and standing up from a chair with arms (wheelchair, bedside commode etc [] [] [x] [] Moving from lying on back to sitting on the side of the bed [] [x] [] [] How much help from another person does the patient currently need? Moving to and from a bed to a chair ( including a wheelchair) [] [] [x] [] To walk in hospital room [] [] [x] [] Climbing 3-5 steps with a railing [x] [] [] [] Score: score indicates the pt would benefit from STR after acute discharge Precautions Medical Precautions: Fall Risk RUE Weight Bearing Status: Full LUE Weight Bearing Status: Full RLE Weight Bearing Status: Full LLE Weight Bearing Status: Full Fall prevention education provided including use of call light in hospital, use of appropriate assistive device, safe mobility techniques, and safety measures at home. PT Received On: 04/03/25 PT Start Time: 0900 PT Stop Time: 30 PT Time Calculation (min): 30 min General Family/Caregiver Present: Yes General Comments: son Precautions Medical Precautions: Fall Risk RUE Weight Bearing Status: Full LUE Weight Bearing Status: Full RLE Weight Bearing Status: Full LLE Weight Bearing Status: Full Cognition Overall Cognitive Status: Within Functional Limits Arousal/Alertness: Appropriate responses to stimuli Orientation Level: Able to orient with prompts Following Commands: Follows one step commands consistently Safety Judgment: Good awareness of safety precautions Hearing: Intact Vision: Intact Speech: Intact Integumentary: NT History of Present Illness: Patient is a 89 y.o. male admitted to [facility] on 04/02/2025. Problem List[1] Medical History[2] Surgical History[3] Social History Home Living Environment: Home Living Type of Home: House Lives With: Spouse, Son Home Adaptive Equipment: Cane, Walker - rolling, Shower chair Home Layout: Two level Home Access: Stairs to enter with rails Entrance Stairs-Number of Steps: 2 Prior Function Level of Connelly: Independent with mobility and functional transfers Ambulation Status: Household ambulator Receives Help From: Family Indoor Mobility Assistance: Independent Stairs Assistance : Needed Some Help Prior Device Use: Cane, Rollator General Assessment 04/03/25 0900 PT Last Visit PT Received On 04/03/25 General Family/Caregiver Present Yes General Comments son PT Time Calculation PT Start Time 09 PT Stop Time 929 PT Time Calculation (min) 30 min Precautions Medical Precautions Fall Risk RUE Weight Bearing Status Full LUE Weight Bearing Status Full RLE Weight Bearing Status Full LLE Weight Bearing Status Full Oxygen Therapy Oxygen Therapy None (Room air) Cognition Overall Cognitive Status WFL Arousal/Alertness Appropriate responses to stimuli Orientation Level Able to orient with prompts Following Commands Follows one step commands consistently Safety Judgment Good awareness of safety precautions Home Living Type of Home House Lives With Spouse;Son Home Adaptive Equipment Cane;Walker - rolling;Shower chair Home Layout Two level Home Access Stairs to enter with rails Entrance Stairs-Number of Steps 2 Prior Function Level of Connelly Independent with mobility and functional transfers Ambulation Status Household ambulator Receives Help From Family Indoor Mobility Assistance Independent Stairs Assistance Needed Some Help Prior Device Use Cane;Rollator Activity Tolerance Endurance Tolerates 10 - 20 min exercise with multiple rests Sensation Light Touch No apparent deficits Coordination Coordination Functional Static Sitting Balance Static Sitting-Level of Assistance Contact guard Static Standing Balance Static Standing-Level of Assistance Minimum assistance Bed Mobility Rolling Left and Right Assistance Minimum assistance Rolling Left and Right Deficit Verbal cueing;Steadying;Supervision/safety awareness;Increased time to complete Sitting to Lying Assistance Moderate assistance Sitting to Lying Deficit Steadying;Verbal cueing;Supervision/safety awareness;Increased time to complete;Assist lifting left leg onto bed;Assist lifting right leg onto bed Lying to Sitting Assistance Moderate assistance Lying to Sitting Deficit Steadying;Verbal cueing;Supervision/safety awareness;Increased time to complete;Assist lifting left leg off of bed;Assist lifting right leg off of bed;Assist to push upper body to upright Transfers Sit to Stand Assistance Minimum assistance Sit to Stand Deficit Steadying;Verbal cueing;Increased time to complete;Supervision/safety awareness Ambulation Walking Assistance Minimum assistance Walking Deficit Steadying;Verbal cueing;Supervision/safety awareness;Increased time to complete;Assist for foot placement Device Rolling walker Distance Ambulated (ft) 20 Comments pt unsteady on his feel leaning L occasionally and significant scoliosis as well , high fall risk , no overt LOB noted at this time RUE Assessment RUE Assessment Within Functional Limits LUE Assessment LUE Assessment Within Functional Limits RLE Assessment RLE Assessment Impaired RLE Assessment Comments 3/5 LLE Assessment LLE Assessment Impaired LLE Assessment Comments 3/5 PT Assessment PT Assessment Results Decreased strength;Decreased endurance;Decreased range of motion;Impaired balance;Impaired gait;Decreased mobility;Decreased coordination Prognosis Good Evaluation/Treatment Tolerance Patient limited by fatigue Medical Staff Made Aware Yes Plan PT Discharge Recommendations Inpatient rehab facility placement PT - Evaluation Status Complete PT Evaluation Time Entry PT Evaluation (Moderate) Time Entry 30 Treatment performed during evaluation: None performed ADDITIONAL COMMENTS: Chart reviewed. RN clears pt for session. Pt agrees to participate and presented in bed upon PT arrival. All lines in place. Gait belt utilized throughout treatment to maximize safety. Medical precautions observed appropriately. Initiated education on the importance of PT, bed mobility safety, Transfer Safety, Ambulation Safety , Therapy Plan of Care, Home Safety, Energy Conservations strategies, and importance of OOB activity . Pt verbalized understanding. EXIT STATUS: Session ended with patient bed, tray table and call light within reach, and RN made aware. Physical Therapy Assessment/Plan Ramon Herr is a 89 y.o. male admitted to [facility] on 04/02/2025 for No admission diagnoses are documented for this encounter. . Pt presents with decreased BLE strength, balance deficits, decreased activity tolerance, and far below functional baseline. Pt performed bed mobility Moderate assist, Bedrail, HOB elevated, and Therapist assist, Transfers with Minimal assist, FWW and ambul ates Minimal assist with FWW 20 ft . Pt will benefit from skilled acute PT during hospital stay to improve the deficits listed above and optimize function. PT recommends Inpatient rehab facility placement when medically stable for safe discharge and to optimize functional mobility and independence. Goals Education Documentation Mobility Training, taught by Radha Narayanan, PT at 04/03/2025 2:00 PM. Learner: Family, Patient Readiness: Eager Method: Explanation, Demonstration Response: Verbalizes Understanding, Demonstrated Understanding, Needs Reinforcement Education Comments No comments found. Radha Narayanan, PT [1] Patient Active Problem List Diagnosis Alcohol abuse, in remission Blood glucose elevated CKD (chronic kidney disease) stage 3, GFR 30-59 ml/min ([facility] V24, [facility] V28) Compression fracture of thoracic vertebra ([facility] V24, [facility] V28) Diverticulosis Leukopenia Macrocytic anemia with vitamin B12 deficiency Osteoarthritis of lumbar spine Osteopenia Polymyalgia rheumatica ([facility] V24) Positive JOJO (antinuclear antibody) NSTEMI (non-ST elevated myocardial infarction) ([facility] V24, [facility] V28) [2] Past Medical History: Diagnosis Date Alzheimer's dementia ([facility], [facility] V28) BPH (benign prostatic hyperplasia) 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 DX: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 CKD (chronic kidney disease), stage III ([facility] V24, [facility] V28) Hematuria DX:Hematuria; COMMENT: MICROSCOPIC, w/u neg 06/19 History of basal cell carcinoma 12/11/2013 DX:History of basal cell carcinoma; COMMENT: 08/14, left nasal ala Polymyalgia rheumatica ([facility] [place]) 06/12/2005 DX:Polymyalgia rheumatica ([facility]); COMMENT: Onset Mar 2005 JOJO Pos(2005) Rash and other nonspecific skin eruption 05/22/2005 DX:Rash and other nonspecific skin eruption; COMMENT: large area of skin removed from upper right arm 1997. 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 DX:Unspecified inflammatory polyarthropathy; COMMENT: involves right wrist and hand JOJO +; RF neg Lyme Ab neg, anti-DNA neg [3] Past Surgical History: Procedure Laterality Date COLONOSCOPY 03/19/08 PROCEDURE: HISTORICAL COLONOSCOPY; COMMENT: diverticulosis, Dr Brandon OTHER SURGICAL HISTORY Left 02/17/98 PROCEDURE: HISTORY OTHER; COMMENT: cutaneous B cell lymphoma OTHER SURGICAL HISTORY 09/03/2000 PROCEDURE: HISTORY OTHER; COMMENT: basal cell nose TONSILLECTOMY PROCEDURE: HISTORICAL TONSILLECTOMY * Martha Carvalho MD - 04/03/2025 1:19 PM EST Ramon Herr This patient was signed out to me by ED provider, Dr Capone. Briefly, the patient presented to theED with failure to thrive in the setting of recent discharge with VNA services after treatment for left lower lobe pneumonia, NSTEMI, rhabdomyolysis. Signed out to me pending case management and PT ev aluation. PT recommending IP rehab. ICD-10-CM ICD-9-CM 1. Generalized weakness R53.1 780.79 * Dede Lilly RN - 04/03/2025 11:14 AM EST landscaping manager spoke with HCP and son Arie at bedside. Aware that patient does not have a inpatient three midnight Medicare stay and STR would be private pay averaging up front of $12k. Aware whatever is not used can be returned. Patient is not a vet and has no VA benefit. Request for acute rehab in order of preference; [facility] Acute[facility] and placed in [facility]. * Elisha Mckeon RN - 04/03/2025 9:52 AM EST Patient placed on hospital bed at this time. He is in position of comfort and denies needs for anything at this time. Family at bedside. * Dede Lilly RN - 04/03/2025 8:41 AM EST 04/03/25 0839 Initial Transition Plan Initial Transition Plan Home Health Care Back up Transition Plan Back up Transition plan Home Health Care (Active with [facility]) Discharge Planning Contact (Name, Phone #, Relationship) for DC Planning Arie Herr Living Arrangements Spouse/significant other;Children Type of Residence Private residence (Two level/chair lyft) Assistive Devices Walker;Wheelchair;Cane Support Systems Spouse/significant other;landscaping manager/social service coordinator;Home care staff;Children Medication Coverage Has Med Coverage Under Insurance Plan Yes Anticipated Discharge Needs Home Health RN;Aide;PT Discipline following for SNF placement [facility] Informed Choice Informed Choice Given? Yes Patient recently discharged home on 03/31/2025 with [facility]. Returned to the ED due to weakness and poor po intake. Given IV fluids but still very weak during interview. He is not a vet and is not on any 02 a home. Patient lives with spouse in a two level home with bathrooms on both floors with alift chair to the second floor. Son Arie lives in an in-law apartment next foor. Awaiting PT evaluation as patient has Medicare prime without an inpatient qualifying stay(03/29/2025 to 03/31/2025). Will follow up with HCP. * Kevin Ceja RN - 04/03/2025 8:38 AM EST Patient declined meal * Arlet Heller RN - 04/02/2025 6:45 PM EST Medication reconciliation completed. Pt uses [facility] in [place]. * Arlet Heller RN - 04/02/2025 1:19 PM EST Pt BIBA from home d/t increased weakness after being discharge from [facility] on the with a OR caused by infection. Per EMS, pt has pneumonia. Pt was supposed to go to cardiac rehab but refused, now endorsing feeling worse, has not been eating/drinking. Per EMS, pt A&Ox4, nonambulatory for EMS d/t weakness. * Volodymyr Zavala MD - 04/02/2025 1:10 PM EST Emergency Medicine Note Patient Name: Ramon Herr Initial Evaluation: 04/02/2025 : 1935 Patient's PCP: Clemencia Gorman MD Emergency Physician: Volodymyr Zavala MD History of Present Illness Chief Complaint: Chief Complaint Patient presents with ??? Weakness - Generalized HPI: 89 y.o. 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 89 y.o. male past medical history significant for Alzheimer's dementia, COPD, CKD stage III, microcytic anemia, B12 deficiency, polymyalgia rheumatica, osteopenia, BPH, alcohol abuse in the pas t Patient presents with failure to thrive after recent admission for lower lobe pneumonia and NSTEMI as well as rhabdo. He is not eating and drinking for much at home he has some dysphagia despite being on dysphagia diet is only drinking small amount of boost the past 2 days. Was treated for aspiration PNA with augmentin last admission. ROS: I have performed a ROS with the pertinent positives and negatives documented in the history ofpresent illness. Previous History Medical History[1] Surgical History[2] Social History[3] Family History[4] has no known allergies. Medications Ordered Prior to Encounter[5] Physical Exam ED Triage Vitals [04/02/25 1329] Temp Heart Rate Resp BP 36.6 ??C (97.9 ??F) 78 25 127/80 SpO2 Temp Source Heart Rate Source Patient Position 97 % Oral Brachial Sitting BP Location FiO2 (%) -- -- General: Ill-appearing, borderline cachectic,weak HEENT: PERRL, EOMI, external ears and nose appear unremarkable, airway is patent Neck: Supple, full range of motion, no meningismus, no JVD Chest: Clear to auscultation; no evidence of respiratory distress Circulatory: The rate and rhythm , no murmurs rubs or gallops Abdomen: Non-distended, Non-Tender Extremities: Normal ROM, No edema, ranging all extremities without difficulty Skin: Pale decreased perfusion, no rashes Neuro: Alert and oriented x 1 no motor or sensory deficits Psyche: Normal affect Results Labs Reviewed BASIC METABOLIC PANEL CBC AND DIFFERENTIAL Narrative: The following orders were created for panel order CBC and differential. Procedure Abnormality Status --------- ------ CBC auto differential[[id number]] In process Please view results for these tests on the individual orders. LACTATE, WITH REFLEX CBC WITH AUTO DIFFERENTIAL B-TYPE NATRIURETIC PEPTIDE URINALYSIS WITH REFLEX MICROSCOPIC Narrative: The following orders were created for panel order Urinalysis with reflex microscopic. Procedure Abnormality Status --------- ------ Urinalysis with reflex ...[[id number]] Please view results for these tests on the individual orders. URINALYSIS WITH REFLEX MICROSCOPIC MAGNESIUM TROPONIN I HIGH SENSITIVITY TROPONIN I HIGH SENSITIVITY Abnormal Labs Reviewed - No abnormal labs to display XR Chest 1 View (Results Pending) I have discussed the incidental/abnormal imaging and/or lab abnormalities with the patient and haveinstructed them the need for further evaluation and workup with their primary care doctor. I have provided the patient with a paper copy of the abnormality. The laboratory results, imaging results and other diagnostic exam results were reviewed in the EMR. EKG Interpretation NSR @[address] changes. Critical Care Time None Medical Decision Making Medications sodium chloride 0.9 % bolus 1,000 mL (1,000 mL intravenous New Bag 04/02/25 1354) ED Course as of 04/04/25 0450 Alyssa Apr 02, 2025 1735 Bun/Cr at baseline, pt has chronic CKD, mild anemia, no signicant chagnes. UA, will defer tx. [JL] 1741 CXR IMPRESSION: FINDINGS/IMPRESSION: Small right pleural effusion with patchy opacities in the right lung could represent infectious/inflammatory process. The left lung is grossly clear. Osteopenia and degenerative changes. [JL] 1743 Cbc at baseline, at this point PNA does not appear worse, will hold for subacute, pt was givenIV hydration [JL] 1926 Pt pending Case Management eval for subacute rehab placement [TW] Fri Apr 03, 2025 0222 S/o: Pending CM for subacute rehab. [BM] Sat Apr 04, 2025 0446 I, Dr. Zavala ,took over the case from the outgoing physician. Reviewed labs history and made medication adjustments as needed. Nurse informed that the patient had some small amount of blood in his briefs. However he we will check to make sure there is no retention however I do not see any signs of significant need for admission will refer to urology. Unless there is retention [JL] ED Course User Index [BM] Gee Capone MD [JL] Volodymyr Zavala MD [TW] Arie Bliss MD Clinical Impressions as of 04/04/25 0450 Generalized weakness Hematuria, unspecified type Procedures Procedures Diagnosis No diagnosis found. Disposition Data Unavailable ED Prescriptions None Physician Attestation Volodymyr Zavala MD 04/02/25 1417 Volodymyr Zavala MD 04/02/25 1743 Volodymyr Zavala MD 04/02/25 8906 [1] Past Medical History: Diagnosis Date ??? Alzheimer's dementia ([facility], [facility]) ??? BPH (benign prostatic hyperplasia) ??? 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 CKD (chronic kidney disease), stage III ([facility], [facility]) ??? Hematuria DX:Hematuria; COMMENT: MICROSCOPIC, w/u neg 06/19 ??? History of basal cell carcinoma 12/11/2013 DX:History of basal cell carcinoma; COMMENT: 08/14, left nasal ala ??? Polymyalgia rheumatica ([facility]) 06/12/2005 DX:Polymyalgia rheumatica ([facility]); COMMENT: Onset Mar 2005 JOJO Pos(2005) ??? Rash and other nonspecific skin eruption 05/22/2005 DX:Rash and other nonspecific skin eruption; COMMENT: large area of skin removed from upper right arm 1997. Records not available ??? 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 COLONOSCOPY 03/19/08 PROCEDURE: HISTORICAL COLONOSCOPY; COMMENT: diverticulosis, Dr Brandon ??? OTHER SURGICAL HISTORY Left 02/17/98 PROCEDURE: HISTORY OTHER; COMMENT: cutaneous B cell lymphoma ??? OTHER SURGICAL HISTORY 09/03/2000 PROCEDURE: HISTORY OTHER; COMMENT: basal cell nose ??? TONSILLECTOMY PROCEDURE: HISTORICAL TONSILLECTOMY [3] Social History Tobacco Use ??? Smoking status: Former Current packs/day: 0.00 Average packs/day: 1.5 packs/day Types: Cigarettes Quit date: 04/16/1983 Years since quittin.9 ??? Smokeless tobacco: Never Substance Use Topics ??? Alcohol use: No Alcohol/week: 11.7 standard drinks of alcohol ??? Drug use: No [4] No family history on file. [5] No current facility-administered medications on file prior to encounter. Current Outpatient Medications on File Prior to Encounter Medication Sig Dispense Refill ??? amoxicillin-clavulanate (AUGMENTIN) 500-125 mg per tablet Take 1 tablet by mouth every 12 (twelve) hours for 13 doses. 13 each 0 ??? aspirin 81 mg EC tablet Take 1 tablet (81 mg total) by mouth 1 (one) time each day. 30 each 11 ??? atorvastatin (LIPITOR) 40 mg tablet Take 1 tablet (40 mg total) by mouth at bedtime. 30 each 11 ??? ipratropium-albuteroL (DUONEB) 0.5-2.5 mg/3 mL nebulizer solution Take 3 mL by nebulization 3 (three) times a day. 270 mL 0 ??? nutritional drink (Ensure Original) liquid CHOCOLATE FLAVOR TO DRINK 3 PER DAY 90 each 11 ??? vit B complex no.12/niacin,B3, (VITAMIN B COMPLEX NO.12-NIACIN ORAL) Take by mouth. documented in this encounter Plan of Treatment Not on file documented as of this encounter Procedures Procedure Name Priority Date/Time Associated Diagnosis Comments CBC WITH AUTO DIFFERENTIAL STAT 04/05/2025 12:05 PM EST CBC AND DIFFERENTIAL STAT 04/05/2025 12:05 PM EST BASIC METABOLIC PANEL STAT 04/05/2025 12:05 PM EST TROPONIN I HIGH SENSITIVITY STAT 04/04/2025 1:56 PM EST CBC WITH AUTO DIFFERENTIAL STAT 04/04/2025 1:56 PM EST CBC AND DIFFERENTIAL STAT 04/04/2025 1:56 PM EST BASIC METABOLIC PANEL STAT 04/04/2025 1:56 PM EST XR CHEST 1 VIEW STAT 04/04/2025 10:18 AM EST TROPONIN I HIGH SENSITIVITY STAT 04/02/2025 6:58 PM EST URINALYSIS WITH REFLEX MICROSCOPIC STAT 04/02/2025 4:01 PM EST URINALYSIS WITH REFLEX MICROSCOPIC STAT 04/02/2025 4:01 PM EST MAJOR URINE CULTURE TUBE Routine 04/02/2025 4:00 PM EST EXTRA TUBES Routine 04/02/2025 4:00 PM EST XR CHEST 1 VIEW STAT 04/02/2025 3:28 PM EST ECG 12-LEAD STAT 04/02/2025 2:00 PM EST TROPONIN I HIGH SENSITIVITY Timed 04/02/2025 1:56 PM EST LACTATE, WITH REFLEX STAT 04/02/2025 1:52 PM EST CBC WITH AUTO DIFFERENTIAL STAT 04/02/2025 1:52 PM EST CBC AND DIFFERENTIAL STAT 04/02/2025 1:52 PM EST B-TYPE NATRIURETIC PEPTIDE STAT 04/02/2025 1:52 PM EST MAGNESIUM STAT 04/02/2025 1:52 PM EST BASIC METABOLIC PANEL STAT 04/02/2025 1:52 PM EST documented in this encounter Results * (ABNORMAL) CBC auto differential (04/05/2025 12:05 PM EST) WBC 3.6(L) 4.8 - 10.8 K/mcL LAB HEMETOLOGY METHOD 04/05/2025 12:22 PM EST [facility] RBC 3.20(L) 4.50 - 5.50 M/mcL LAB HEMETOLOGY METHOD 04/05/2025 12:22 PM EST [facility] Hemoglobin 10.6(L) 13.5 - 17.5 g/dL LAB HEMETOLOGY METHOD 04/05/2025 12:22 PM [facility] Hematocrit 30.8(L) 42.0 - 54.0 % LAB HEMETOLOGY METHOD 04/05/2025 12:22 PM [facility] MCV 96.6 79.0 - 98.0 FL LAB HEMETOLOGY METHOD 04/05/2025 12:22 PM [facility] MCH 33.2(H) 27.0 - 32.0 pcg LAB HEMETOLOGY METHOD 04/05/2025 12:22 PM [facility] MCHC 34.4 32.0 - 37.0 g/dL LAB HEMETOLOGY METHOD 04/05/2025 12:22 PM [facility] RDW 13.2 11.0 - 15.0 % LAB HEMETOLOGY METHOD 04/05/2025 12:22 PM [facility] Platelets 164 130 - 400 K/mcL LAB HEMETOLOGY METHOD 04/05/2025 12:22 PM [facility] MPV 9.0 7.0 - 11.0 FL LAB HEMETOLOGY METHOD 04/05/2025 12:22 PM [facility] NRBC 0.0 <1.0 % LAB HEMETOLOGY METHOD 04/05/2025 12:22 PM [facility] NRBC Absolute 0.00 <0.10 K/mcL LAB HEMETOLOGY METHOD 04/05/2025 12:22 PM [facility] Neutrophils Relative 62.7 % LAB HEMETOLOGY METHOD 04/05/2025 12:22 PM [facility] Lymphocytes Relative 21.7 % LAB HEMETOLOGY METHOD 04/05/2025 12:22 PM [facility] Monocytes Relative 13.2 % LAB HEMETOLOGY METHOD 04/05/2025 12:22 PM [facility] Eosinophils Relative 1.6 % LAB HEMETOLOGY METHOD 04/05/2025 12:22 PM [facility] Basophils Relative 0.5 % LAB HEMETOLOGY METHOD 04/05/2025 12:22 PM [facility] Immature Granulocytes Relative 0.3 % LAB HEMETOLOGY METHOD 04/05/2025 12:22 PM [facility] Neutrophils Absolute 2.28 1.50 - 7.00 K/mcL LAB HEMETOLOGY METHOD 04/05/2025 12:22 PM [facility] Lymphocytes Absolute 0.79(L) 1.00 - 5.00 K/mcL LAB HEMETOLOGY METHOD 04/05/2025 12:22 PM [facility] Monocytes Absolute 0.48 0.20 - 1.00 K/mcL LAB HEMETOLOGY METHOD 04/05/2025 12:22 PM [facility] Eosinophils Absolute 0.06 0.00 - 0.50 K/mcL LAB HEMETOLOGY METHOD 04/05/2025 12:22 PM [facility] Basophils Absolute 0.02 0.00 - 0.20 K/mcL LAB HEMETOLOGY METHOD 04/05/2025 12:22 PM [facility] [facility] Immature Granulocytes Absolute 0.01 0.00 - 0.03 K/mcL LAB HEMETOLOGY METHOD 04/05/2025 12:22 PM [facility] Blood Venous blood specimen / Unknown Venipuncture / Unknown 04/05/2025 12:05 PM EST 04/05/2025 12:18 PM EST us Martha Carvalho MD LAB BLOOD ORDERABLES Final Resul t [facility] [address] [place] [address], * (ABNORMAL) Basic Metabolic Panel (BMP) (04/05/2025 12:05 PM EST) Sodium 145 133 - 145 mmol/L 04/05/2025 12:44 PM [facility] Potassium 4.3 3.5 - 5.5 mmol/L 04/05/2025 12:44 PM [facility] Chloride 107 96 - 110 mmol/L 04/05/2025 12:44 PM [facility] CO2 32 21 - 32 mmol/L 04/05/2025 12:44 PM [facility] Anion Gap 6 3 - 11 04/05/2025 12:44 PM [facility] Glucose 111(H) 70 - 100 mg/dL 04/05/2025 12:44 PM [facility] BUN 23 5 - 25 mg/dL 04/05/2025 12:44 PM [facility] Creatinine 1.31(H) 0.70 - 1.30 mg/dL 04/05/2025 12:44 PM [facility] eGFR 53(L) >=60 mL/min/1. 73m2 04/05/2025 12:44 PM [facility] Comment:Calculation based on the Chronic Kidney Disease Epidemiology Collaboration (CKD-EPI) equation refit without adjustment for race. BUN/Creatinine Ratio 17.6 04/05/2025 12:44 PM [facility] Calcium 9.7 8.5 - 10.5 mg/dL 04/05/2025 12:44 PM [facility] Blood Venous blood specimen / Unknown Venipuncture / Unknown 04/05/2025 12:05 PM EST 04/05/2025 12:18 PM EST us Martha Carvalho MD LAB BLOOD ORDERABLES Final Resul t [facility] [address] [place] [address], [place] [phone] * Troponin I high sensitivity (04/04/2025 1:56 PM EST) [facility] High Sensitivity Troponin I 29 <=53 ng/L 04/04/2025 2:40 PM EST [facility] Blood Venous blood specimen / Unknown Venipuncture / Unknown 04/04/2025 1:56 PM EST 04/04/2025 2:15 PM EST Martha Carvalho MD LAB BLOOD ORDERABLES Final Resul t [facility] [address] [place] [address], [place] [phone] * (ABNORMAL) CBC auto differential (04/04/2025 1:56 PM EST) [facility] WBC 3.5(L) 4.8 - 10.8 K/mcL LAB HEMETOLOGY METHOD 04/04/2025 2:22 PM [facility] RBC 3.20(L) 4.50 - 5.50 M/mcL LAB HEMETOLOGY METHOD 04/04/2025 2:22 PM [facility] Hemoglobin 10.6(L) 13.5 - 17.5 g/dL LAB HEMETOLOGY METHOD 04/04/2025 2:22 PM [facility] Hematocrit 30.6(L) 42.0 - 54.0 % LAB HEMETOLOGY METHOD 04/04/2025 2:22 PM [facility] MCV 96.8 79.0 - 98.0 FL LAB HEMETOLOGY METHOD 04/04/2025 2:22 PM [facility] MCH 33.5(H) 27.0 - 32.0 pcg LAB HEMETOLOGY METHOD 04/04/2025 2:22 PM [facility] MCHC 34.6 32.0 - 37.0 g/dL LAB HEMETOLOGY METHOD 04/04/2025 2:22 PM [facility] RDW 13.2 11.0 - 15.0 % LAB HEMETOLOGY METHOD 04/04/2025 2:22 PM [facility] Platelets 168 130 - 400 K/mcL LAB HEMETOLOGY METHOD 04/04/2025 2:22 PM [facility] MPV 9.0 7.0 - 11.0 FL LAB HEMETOLOGY METHOD 04/04/2025 2:22 PM [facility] NRBC 0.0 <1.0 % LAB HEMETOLOGY METHOD 04/04/2025 2:22 PM [facility] NRBC Absolute 0.00 <0.10 K/mcL LAB HEMETOLOGY METHOD 04/04/2025 2:22 PM [facility] Neutrophils Relative 68.0 % LAB HEMETOLOGY METHOD 04/04/2025 2:22 PM [facility] Lymphocytes Relative 21.5 % LAB HEMETOLOGY METHOD 04/04/2025 2:22 PM [facility] Monocytes Relative 8.5 % LAB HEMETOLOGY METHOD 04/04/2025 2:22 PM [facility] Eosinophils Relative 1.1 % LAB HEMETOLOGY METHOD 04/04/2025 2:22 PM [facility] Basophils Relative 0.3 % LAB HEMETOLOGY METHOD 04/04/2025 2:22 PM [facility] Immature Granulocytes Relative 0.6 % LAB HEMETOLOGY METHOD 04/04/2025 2:22 PM [facility] Neutrophils Absolute 2.40 1.50 - 7.00 K/mcL LAB HEMETOLOGY METHOD 04/04/2025 2:22 PM [facility] Lymphocytes Absolute 0.76(L) 1.00 - 5.00 K/mcL LAB HEMETOLOGY METHOD 04/04/2025 2:22 PM EST [facility] Monocytes Absolute 0.30 0.20 - 1.00 K/[facility] LAB HEMETOLOGY METHOD 04/04/2025 2:22 PM [facility] Eosinophils Absolute 0.04 0.00 - 0.50 K/[facility] LAB HEMETOLOGY METHOD 04/04/2025 2:22 PM EST [facility] Basophils Absolute 0.01 0.00 - 0.20 K/[facility] LAB HEMETOLOGY METHOD 04/04/2025 2:22 PM [facility] Immature Granulocytes Absolute 0.02 0.00 - 0.03 K/[facility] LAB HEMETOLOGY METHOD 04/04/2025 2:22 PM [facility] Blood Venous blood specimen / Unknown Venipuncture / Unknown 04/04/2025 1:56 PM EST 04/04/2025 2:15 PM EST us Martha Carvalho MD LAB BLOOD ORDERABLES Final Resul t [facility] [address] [place] [address], * (ABNORMAL) Basic Metabolic Panel (BMP) (04/04/2025 1:56 PM EST) Sodium 140 133 - 145 mmol/L 04/04/2025 2:40 PM [facility] Potassium 4.4 3.5 - 5.5 mmol/L 04/04/2025 2:40 PM [facility] Chloride 104 96 - 110 mmol/L 04/04/2025 2:40 PM [facility] CO2 30 21 - 32 mmol/L 04/04/2025 2:40 PM [facility] Anion Gap 6 3 - 11 04/04/2025 2:40 PM [facility] Glucose 115(H) 70 - 100 mg/dL 04/04/2025 2:40 PM EST [facility] BUN 28(H) 5 - 25 mg/dL 04/04/2025 2:40 PM [facility] Creatinine 1.35(H) 0.70 - 1.30 mg/dL 04/04/2025 2:40 PM [facility] eGFR 51(L) >=60 mL/min/1. 73m2 04/04/2025 2:40 PM [facility] Comment:Calculation based on the Chronic Kidney Disease Epidemiology Collaboration (CKD-EPI) equation refit without adjustment for race. BUN/Creatinine Ratio 20.7 04/04/2025 2:40 PM [facility] Calcium 9.5 8.5 - 10.5 mg/dL 04/04/2025 2:40 PM [facility] Blood Venous blood specimen / Unknown Venipuncture / Unknown 04/04/2025 1:56 PM EST 04/04/2025 2:15 PM EST Martha Carvalho MD LAB BLOOD ORDERABLES Final Resul t [facility] [address] [place] [address], * XR Chest 1 View (04/04/2025 10:18 AM EST) Anatomical Region Laterality Modality Body Radiographic Darby ging 04/04/2025 10:5 2 AM EST Impressions 04/04/2025 10:54 AM EST Stable radiographic appearance of the chest. -------- FINAL REPORT -------- Dictated By: Kevin Kyle Dictated Date: 04/04/2025 10:52 ET Assigned Physician: Kevin Kyle Reviewed and Electronically Signed By: Kevin Kyle Signed Date: 04/04/2025 10:54 ET Workstation ID: [id number] Transcribed By: Self Edit Transcribed Date: 04/04/2025 10:52 ET Narrative 04/04/2025 10:54 AM EST PROCEDURE: AP chest radiograph. HISTORY: reeval pna. COMPARISON: 04/02/2025. FINDINGS: Mildly hypoventilatory inspiratory effort. Stable blunting of the right costophrenic angle, pleural thickening or a small effusion. Coarse markings throughout both lungs appear similar to the previous study. These are most confluent in the right perihilar region. No pneumothorax. Bones appear demineralized. Degenerative changes of the spine with a dextroscoliosis at the thoracolumbar junction. Mild degenerative changes of the shoulders. Atherosclerotic calcifications of the aorta. Procedure Note Kevin Kyle MD - 04/04/2025 PROCEDURE: AP chest radiograph. HISTORY: reeval pna. COMPARISON: 04/02/2025. FINDINGS: Mildly hypoventilatory inspiratory effort. Stable blunting of the rightcostophrenic angle, pleural thickening or a small effusion. Coarsemarkings throughout both lungs appear similar to the previous study.These are most confluent in the right perihilar region. No pneumothorax.Bones appear demineralized. Degenerative changes of the spine with adextroscoliosis at the thoracolumbar junction. Mild degenerative changesof the shoulders. Atherosclerotic calcifications of the aorta. IMPRESSION: Stable radiographic appearance of the chest. -------- FINAL REPORT -------- Dictated By: Kevin Kyle Dictated Date: 04/04/2025 10:52 ET Assigned Physician: Kevin Kyle Reviewed and Electronically Signed By: Kevin Kyle Signed Date: 04/04/2025 10:54 ET Workstation ID: [id number] Transcribed By: Self Edit Transcribed Date: 04/04/2025 10:52 ET Martha Carvalho MD IMG XR PROCEDURES Final Result * (ABNORMAL) Troponin I high sensitivity (04/02/2025 6:58 PM EST) High Sensitivity Troponin I 63(H) <=53 ng/L 04/02/2025 8:53 PM [facility] Blood Venous blood specimen / Unknown Venipuncture / Unknown 04/02/2025 6:58 PM EST 04/02/2025 8:20 PM EST us Volodymyr Zavala MD LAB BLOOD ORDERABLES Final Result [facility] [address] [place] [address], [place] [phone] * (ABNORMAL) Urinalysis with reflex microscopic (04/02/2025 4:01 PM EST) Specific [place] Urine 1.017 1.003 - 1.030 LAB URINALYSIS - AUTOMATED METHOD 04/02/2025 4:59 PM [facility] pH, Urine 6.0 5.0 - 8.0 pH LAB URINALYSIS - AUTOMATED METHOD 04/02/2025 4:59 PM [facility] Leukocytes, Urine Negative Negative LAB URINALYSIS - AUTOMATED METHOD 04/02/2025 4:59 PM [facility] Nitrite, Urine Negative Negative LAB URINALYSIS - AUTOMATED METHOD 04/02/2025 4:59 PM [facility] Protein, Urine 30(A) <=Trace mg/dL LAB URINALYSIS - AUTOMATED METHOD 04/02/2025 4:59 PM [facility] Glucose, Urine Negative Negative mg/dL LAB URINALYSIS - AUTOMATED METHOD 04/02/2025 4:59 PM [facility] Ketones, Urine 15(A) Negative mg/dL LAB URINALYSIS - AUTOMATED METHOD 04/02/2025 4:59 PM [facility] Urobilinogen, Urine 0.2 0.2 - 1.0 mg/dL LAB URINALYSIS - AUTOMATED METHOD 04/02/2025 4:59 PM [facility] Bilirubin, Urine Negative Negative LAB URINALYSIS - AUTOMATED METHOD 04/02/2025 4:59 PM [facility] Blood, Urine Small(A) Negative LAB URINALYSIS - AUTOMATED METHOD 04/02/2025 4:59 PM [facility] RBC, Urine 10(H) 0 - 4 /HPF 04/02/2025 4:59 PM [facility] WBC, Urine 5(H) 0 - 4 /HPF 04/02/2025 4:59 PM [facility] Squamous Epithelial, Urine 10 0 - 60 /LPF 04/02/2025 4:59 PM [facility] Bacteria, Urine Negative Negative /HPF 04/02/2025 4:59 PM [facility] Hyaline Casts, Urine 4(H) 0 - 3 /LPF 04/02/2025 4:59 PM [facility] Urine Urine specimen obtained by clean catch procedure / Unknown Non-blood Collection / Unknown 04/02/2025 4:01 PM EST 04/02/2025 4:14 PM EST Volodymyr Zavala MD LAB URINE ORDERABLES Final Result Performing Organization Address [facility]/ZIP Co de Phone Number [facility] [address] [place] [address], * Major urine culture tube (04/02/2025 4:00 PM EST) Extra Tube Hold for add-ons. 04/02/2025 6:01 PM EST [facility] Comment:Auto resulted. Urine Urine specimen obtained by clean catch procedure / Unknown 04/02/2025 4:00 PM EST 04/02/2025 4:15 PM EST Volodymyr Zavala MD LAB URINE ORDERABLES Final Result Performing Organization Address City/[facility]/ZIP Co de Phone Number [facility] [address] [place] [address], [place] [phone] * XR Chest 1 View (04/02/2025 3:28 PM EST) Anatomical Region Laterality Modality Body Radiographic Darby ging 04/02/2025 3:58 PM EST Impressions 04/02/2025 4:10 PM EST FINDINGS/IMPRESSION: Small right pleural effusion with patchy opacities in the right lung could represent infectious/inflammatory process. The left lung is grossly clear. Osteopenia and degenerative changes. -------- FINAL REPORT -------- Dictated By: Augie Jerome Dictated Date: 04/02/2025 15:58 ET Assigned Physician: Augie Jerome Reviewed and Electronically Signed By: uAgie Jerome Signed Date: 04/02/2025 16:10 ET Workstation ID: [id number] Transcribed By: Self Edit Transcribed Date: 04/02/2025 16:09 ET Narrative 04/02/2025 4:10 PM EST XR CHEST 1 VIEW INDICATION: general weakness TECHNIQUE: XR CHEST 1 VIEW COMPARISON: None Procedure Note Augie Jerome MD - 04/02/2025 XR CHEST 1 VIEW INDICATION: general weakness TECHNIQUE: XR CHEST 1 VIEW COMPARISON: None IMPRESSION: FINDINGS/IMPRESSION: Small right pleural effusion with patchy opacities inthe right lung could represent infectious/inflammatory process. The leftlung is grossly clear. Osteopenia and degenerative changes. -------- FINAL REPORT -------- Dictated By: Augie Jerome Dictated Date: 04/02/2025 15:58 ET Assigned Physician: Augie Jerome Reviewed and Electronically Signed By: Augie Jerome Signed Date: 04/02/2025 16:10 ET Workstation ID: [id number] Transcribed By: Self Edit Transcribed Date: 04/02/2025 16:09 ET us Volodymyr Zavala MD IMG XR PROCEDURES Final Res ult * 12-Lead ECG (04/02/2025 2:00 PM EST) Ventricular Rate ECG 68 BPM GEM[facility] Atrial Rate 68 BPM GEMUSE P-R Interval 146 ms GEMUSE QRS Duration 116 ms GEMUSE Q-T Interval 394 ms GEMUSE QTc 418 ms GEMUSE P Wave [place] 77 degrees GEMUSE R [place] 74 degrees GEMUSE T [place] 63 degrees GEMUSE ECG Interpretation Normal sinus rhythm Incomplete right bundle branch block When compared with ECG of 29-MAR-2025 14:16, No significant change was found Confirmed by ABNER MYERS ([id number]) on 04/02/2025 11:23:32 PM GEMUSE 04/02/2025 2:00 PM EST 04/02/2025 11:23 PM EST us Volodymyr Zavala MD ECG ORDERABLES Final Resul t Performing Organization Address City/[facility]/ZIP Co de Phone Number GEM[facility] * (ABNORMAL) Troponin I high sensitivity (04/02/2025 1:56 PM EST) High Sensitivity Troponin I 62(H) <=53 ng/L 04/02/2025 2:47 PM EST [facility] Blood Venous blood specimen / Unknown Venipuncture / Unknown 04/02/2025 1:56 PM EST 04/02/2025 2:12 PM EST Volodymyr Zavala MD LAB BLOOD ORDERABLES Final Result Performing Organization Address [facility] Co de Phone Number [facility] [address] [place] [address], * Magnesium (04/02/2025 1:52 PM EST) Magnesium 2.2 1.9 - 2.6 mg/dL 04/02/2025 2:51 PM EST [facility] Blood Venous blood specimen / Unknown Venipuncture / Unknown 04/02/2025 1:52 PM EST 04/02/2025 2:12 PM EST us Volodymyr Zavala MD LAB BLOOD ORDERABLES Final Result [facility] [address] [place] [address], * B-Type Natriuretic Peptide (BNP) (04/02/2025 1:52 PM EST) [facility] BNP 68 <=100 pcg/mL 04/02/2025 2:47 PM EST [facility] Blood Venous blood specimen / Unknown Venipuncture / Unknown 04/02/2025 1:52 PM EST 04/02/2025 2:12 PM EST [facility] - 04/02/2025 2:47 PM EST Over the counter supplements containing high doses of biotin may interfere with this assay. If interference is suspected, patients shoud be retested after refraining from biotin supplements for 72 hours. Volodymyr Zavala MD LAB BLOOD ORDERABLES Final Result Performing Organization Address [facility] de Phone Number [facility] [address] [place] [address], * (ABNORMAL) CBC auto differential (04/02/2025 1:52 PM EST) [facility] WBC 4.7(L) 4.8 - 10.8 K/mcL LAB HEMETOLOGY METHOD 04/02/2025 2:24 PM [facility] RBC 3.30(L) 4.50 - 5.50 M/mcL LAB HEMETOLOGY METHOD 04/02/2025 2:24 PM [facility] Hemoglobin 11.1(L) 13.5 - 17.5 g/dL LAB HEMETOLOGY METHOD 04/02/2025 2:24 PM [facility] Hematocrit 32.5(L) 42.0 - 54.0 % LAB HEMETOLOGY METHOD 04/02/2025 2:24 PM [facility] MCV 99.7(H) 79.0 - 98.0 FL LAB HEMETOLOGY METHOD 04/02/2025 2:24 PM [facility] MCH 34.0(H) 27.0 - 32.0 pcg LAB HEMETOLOGY METHOD 04/02/2025 2:24 PM [facility] MCHC 34.2 32.0 - 37.0 g/dL LAB HEMETOLOGY METHOD 04/02/2025 2:24 PM [facility] RDW 13.4 11.0 - 15.0 % LAB HEMETOLOGY METHOD 04/02/2025 2:24 PM [facility] Platelets 164 130 - 400 K/mcL LAB HEMETOLOGY METHOD 04/02/2025 2:24 PM [facility] MPV 9.5 7.0 - 11.0 FL LAB HEMETOLOGY METHOD 04/02/2025 2:24 PM [facility] NRBC 0.0 <1.0 % LAB HEMETOLOGY METHOD 04/02/2025 2:24 PM [facility] NRBC Absolute 0.00 <0.10 K/mcL LAB HEMETOLOGY METHOD 04/02/2025 2:24 PM [facility] Neutrophils Relative 72.3 % LAB HEMETOLOGY METHOD 04/02/2025 2:24 PM [facility] Lymphocytes Relative 19.5 % LAB HEMETOLOGY METHOD 04/02/2025 2:24 PM [facility] Monocytes Relative 6.6 % LAB HEMETOLOGY METHOD 04/02/2025 2:24 PM [facility] Eosinophils Relative 0.6 % LAB HEMETOLOGY METHOD 04/02/2025 2:24 PM [facility] Basophils Relative 0.4 % LAB HEMETOLOGY METHOD 04/02/2025 2:24 PM [facility] Immature Granulocytes Relative 0.6 % LAB HEMETOLOGY METHOD 04/02/2025 2:24 PM EST [facility] Neutrophils Absolute 3.42 1.50 - 7.00 K/mcL LAB HEMETOLOGY METHOD 04/02/2025 2:24 PM EST [facility] Lymphocytes Absolute 0.92(L) 1.00 - 5.00 K/mcL LAB HEMETOLOGY METHOD 04/02/2025 2:24 PM EST [facility] Monocytes Absolute 0.31 0.20 - 1.00 K/mcL LAB HEMETOLOGY METHOD 04/02/2025 2:24 PM EST [facility] Eosinophils Absolute 0.03 0.00 - 0.50 K/mcL LAB HEMETOLOGY METHOD 04/02/2025 2:24 PM EST [facility] Basophils Absolute 0.02 0.00 - 0.20 K/mcL LAB HEMETOLOGY METHOD 04/02/2025 2:24 PM EST [facility] Immature Granulocytes Absolute 0.03 0.00 - 0.03 K/[facility] LAB HEMETOLOGY METHOD 04/02/2025 2:24 PM EST [facility] Blood Venous blood specimen / Unknown Venipuncture / Unknown 04/02/2025 1:52 PM EST 04/02/2025 2:12 PM EST us Volodymyr Zavala MD LAB BLOOD ORDERABLES Final Result [facility] [address] [place] [address], * Lactate, with reflex (04/02/2025 1:52 PM EST) LACTIC ACID 1.0 0.4 - 2.0 mmol/L 04/02/2025 2:52 PM EST [facility] Blood Venous blood specimen / Unknown Venipuncture / Unknown 04/02/2025 1:52 PM EST 04/02/2025 2:12 PM EST us Volodymyr Zavala MD LAB BLOOD ORDERABLES Final Result [facility] [address] [place] [address], * (ABNORMAL) Basic Metabolic Panel (BMP) (04/02/2025 1:52 PM EST) Sodium 144 133 - 145 mmol/L 04/02/2025 2:51 PM [facility] Potassium 4.0 3.5 - 5.5 mmol/L 04/02/2025 2:51 PM [facility] Chloride 107 96 - 110 mmol/L 04/02/2025 2:51 PM [facility] CO2 32 21 - 32 mmol/L 04/02/2025 2:51 PM [facility] Anion Gap 5 3 - 11 04/02/2025 2:51 PM [facility] Glucose 80 70 - 100 mg/dL 04/02/2025 2:51 PM [facility] BUN 26(H) 5 - 25 mg/dL 04/02/2025 2:51 PM [facility] Creatinine 1.49(H) 0.70 - 1.30 mg/dL 04/02/2025 2:51 PM [facility] eGFR 45(L) >=60 mL/min/1. 73m2 04/02/2025 2:51 PM [facility] Comment:Calculation based on the Chronic Kidney Disease Epidemiology Collaboration (CKD-EPI) equation refit without adjustment for race. BUN/Creatinine Ratio 17.4 04/02/2025 2:51 PM [facility] Calcium 10.0 8.5 - 10.5 mg/dL 04/02/2025 2:51 PM [facility] Blood Venous blood specimen / Unknown Venipuncture / Unknown 04/02/2025 1:52 PM EST 04/02/2025 2:12 PM EST us Volodymyr Zavala MD LAB BLOOD ORDERABLES Final Result [facility] [address] [place] [address], documented in this encounter Visit Diagnoses Diagnosis Generalized weakness- Primary Hematuria, unspecified type Aspiration pneumonia of right lower lobe, unspecified aspiration pneumonia type ([facility] V24, [facility] V28) Failure to thrive in adult Adult failure to thrive Leukopenia, unspecified type Anemia, unspecified type Chronic renal failure, stage 3a ([facility] V24, [facility] V28) Alzheimer's dementia without behavioral disturbance, psychotic disturbance, mood disturbance, or anxiety, unspecified dementia severity, unspecified timing of dementia onset ([facility] V24, [facility] V28) documented in this encounter Administered Medications Inactive Administered Medications - up to 3 most recent administrations Medication Order MAR Action Action Date Dose Rate Site acetaminophen (TYLENOL) tablet 650 mg 650 mg, oral, Every 6 hours PRN, mild pain, moderate pain, Starting on Alyssa 04/02/25 at 1834, For 7 days amoxicillin-clavulanate (AUGMENTIN) 500-125 mg per tablet 1 tablet 1 tablet, oral, Every 12 hours scheduled, First dose on Sun04/03/25 at 0900, For 5 days, Indication: Pneumonia, Community Acquired Given 04/06/2025 9:27 AM EST 1 tablet Given 04/05/2025 8:08 PM EST 1 tablet Given 04/05/2025 8:17 AM EST 1 tablet aspirin EC tablet 81 mg 81 mg, oral, Daily, First dose on Sun04/03/25 at 0900, For 364 days, Do not crush, chew, or split. Given 04/06/2025 9:27 AM EST 81 mg Given 04/05/2025 8:16 AM EST 81 mg Given 04/04/2025 8:51 AM EST 81 mg atorvastatin (LIPITOR) tablet 40 mg 40 mg, oral, Nightly, First dose on Sun04/03/25 at 2100 Given 04/05/2025 8:09 PM EST 40 mg Given 04/04/2025 9:47 PM EST 40 mg Given 04/03/2025 9:30 PM EST 40 mg ipratropium-albuteroL (DUONEB) 0.5-2.5 mg/3 mL nebulizer solution 3 mL 3 mL, nebulization, 3 times daily, First dose on Sun04/03/25 at 0800 Given 04/06/2025 1:53 PM EST 3 mL Given 04/06/2025 8:59 AM EST 3 mL Given 04/05/2025 8:09 PM EST 3 mL sodium chloride 0.9 % bolus 1,000 mL 1,000 mL, intravenous, at 333.3 mL/hr, Administer over 3 Hours, Once, On Alyssa 04/02/25 at 1329, For 1 dose New Bag 04/02/2025 1:54 PM EST 1,000 mL 333.3 mL/hr documented in this encounter Active and Recently Administered Medications Times are shown in EST. Scheduled Medication Order 04/04/2025 04/05/2025 04/06/2025 amoxicillin-clavulanat e (AUGMENTIN) 500-125 mg per tablet 1 tablet 1 tablet, oral, Every 12 hours scheduled, First dose on Sun04/03/25 at 0900, For 5 days, Indication: Pneumonia, Community Acquired 0851 (Given - Provider: Margareth Sánchez RN)2146 (Given - Provider: Alma Ramachandran RN) 816 (Given - Provider: Elisha Mckeon, ELENA)2007 (Given - Provider: Negrito Boyle RN) 926 (Given - Provider: Linda Cárdenas, RN) aspirin EC tablet 81 mg 81 mg, oral, Daily, First dose on Sun04/03/25 at 0900, For 364 days, Do not crush, chew, or split. 0851 (Given - Provider: Margareth Sánchez RN) 0816 (Given - Provider: Elisha Mckeon RN) 09 (Given - Provider: Linda Cárdenas, RN) atorvastatin (LIPITOR) tablet 40 mg 40 mg, oral, Nightly, First dose on Sun04/03/25 at 2100 2147 (Given - Provider: Alma Ramachandran RN) 2008 (Given - Provider: Negrito Boyle RN) ipratropium-albuteroL (DUONEB) 0.5-2.5 mg/3 mL nebulizer solution 3 mL 3 mL, nebulization, 3 times daily, First dose on Sun04/03/25 at 0800 0839 (Given - Provider: Madyson Garcia, DIRECTOR INDUSTRIAL NURSING)1417 (Given - Provider: Margareth Sánchez, ELENA)1939 (Given - Provider: Bello Lopez RN) 0830 (Given - Provider: Madyson Garcia, DIRECTOR INDUSTRIAL NURSING)1326 (Given - Provider: Elisha Mckeon, ELENA)2008 (Given - Provider: Negrito Boyle RN) 0859 (Given - Provider: Esther Parker, DIRECTOR INDUSTRIAL NURSING)1353 (Given - Provider: Esther Parker, KHADIJAH) PRN Medication Order 04/04/2025 04/05/2025 04/06/2025 acetaminophen (TYLENOL) tablet 650 mg 650 mg, oral, Every 6 hours PRN, mild pain, moderate pain, Starting on Alyssa 04/02/25 at 1834, For 7 days documented in this encounter Orders Medications Ordered That Ronak ht Not Have Been Administered Count Last Ordered Date First Ordered Date acetaminophen (TYLENOL) tablet 650 mg 1 sodium chloride 0.9 % bolus 1,000 mL 1 03/16 documented in this encounter Care Teams Immunology Teacher Relationship Specialty Start Date End Date Clemencia Gorman MD [address] [place] [id number] PCP - General 10/01/23 documented as of this encounter
[2025-04-07 07:11] LABS: MANUAL DIFF FLAG NO
--- OUTSIDE RECORDS SUMMARY | 2025-04-07 07:12 | XMS_ITS | Encounter Summary ---
Author Organization [facility] Address [address] [place] [address] Care Team Providers Care Roll Repairer Name Role Phone Clemencia Gorman MD Primary Care Provider Reason for Visit * Reason Onset Date Comments Transitional Care Management 04/02/2025 Encounter Details Date Type Department Care Team (Late st Contact Info) Description 04/02/2025 Telephone Adult Medicine [facility] [address] [place] [address] Richard Hansen, RN Social History Tobacco Use Types Packs/Day Years [...] your loved ones. For example, child welfare worker or elderly care for an older adult? [...] PM EST documented as of this encounter Progress Notes * Richard Hansen RN - 04/02/2025 10:26 AM EST Appointment all ready scheduled documented in this encounter Plan of Treatment Not on file documented as of this encounter Visit Diagnoses Not on filedocumented in this encounter Care Teams Roll Repairer Relationship Specialty Start Date End Date Clemencia Gorman MD [address] [place] [id number] PCP - General 10/01/23 documented as of this encounter
--- OUTSIDE RECORDS SUMMARY | 2025-04-07 07:12 | XMS_ITS | Encounter Summary ---
Author Organization [facility] Address [address] [place] [address] Care Team Providers Care Road Machinery Inspector Name Role Phone Clemencia Gorman MD Primary Care Provider Reason for Visit * Reason Onset Date Comments vna call 04/03/2025 Encounter Details Date Type Department Care Team ([facility] st Contact Info) Description 04/03/2025 Telephone Adult Medicine [facility] [address] [place] [address] Clemencia Gorman MD [address] [place] [address] Social History Tobacco Use Types Packs/Day Years [...] Record ed Within the last 3 months, bee liao many times did you visit the emergency [...] for your loved ones. For example, child and family services worker or elderly care for an older [...] Progress Notes * Richard Hansen RN - 04/03/2025 12:13 PM EST noted * Pete Danielson - 04/03/2025 12:07 PM EST [facility] CALL Which [facility] office is calling? Jose Fish Full name of caller: Maria Antonia The caller is Is the caller at the patients home?: no Reason for call: DIAMOND Calling to inform that when the nurse went to admit pt yesterday, she sent pt back to the hospital. Has to delay pt's start of care and will keep delaying until pt is discharge or admitted as inpatient. Pt is currently in the ED. Does caller need an urgent call back? no Was CONTACT Telephone # obtained above?: yes Fax #: documented in this encounter Plan of Treatment Not on file documented as of this encounter Visit Diagnoses Not on filedocumented in this encounter Care Teams Road Machinery Inspector Relationship Specialty Start Date End Date Clemencia Gorman MD [address] [place] [id number] PCP - General 10/01/23 documented as of this encounter
--- OUTSIDE RECORDS SUMMARY | 2025-04-07 07:12 | XMS_ITS ---
Author Organization [facility] [address] [facility] lding Address [address] [place] [address] Phone Care Team Providers Care Table Operator Name Role Phone Clemencia Gorman MD Primary Care Provider Chronic Care Management Status:Identified (Enrolling) Start date:04/01/2025 Enrollment reason:Referred by Care Team Related social drivers of health:[facility] Health Literacy Case Team Name Relationship Phone Alisa Gutierrez RN(Responsible Staff) Care Sahil foster Continued Care and Services Coordination
--- OUTSIDE RECORDS SUMMARY | 2025-04-07 07:12 | XMS_ITS | Encounter Summary ---
Author Organization [facility] Address [address] [place] [address] Care Team Providers Care Assistant Clinical Nurse Manager Name Role Phone Clemencia Gorman MD Primary Care Provider Reason for Visit * Reason Onset Date Comments FYI 04/03/2025 Encounter Details Date Type Department Care Team ([facility] st Contact Info) Description 04/03/2025 Telephone Adult Medicine [facility] [address] [place] [address] Clemencia Gorman MD [address] [place] [address] Social History Tobacco Use Types Packs/Day Years [...] care for your loved ones. For example, children's institution attendant or elderly care for an older adult? [...] as of this encounter Progress Notes * Clemencia Gorman MD - 04/03/2025 4:22 PM EST noted * Laney Davis - 04/03/2025 3:10 PM EST FYI pts son called today just to let Dr. Gorman know that his dad has been re admitted to [facility]. documented in this encounter Plan of Treatment Not on file documented as of this encounter Visit Diagnoses Not on filedocumented in this encounter Care Teams Assistant Clinical Nurse Manager Relationship Specialty Start Date End Date Clemencia Gorman MD [address] [place] [id number] PCP - General 10/01/23 documented as of this encounter
--- OUTSIDE RECORDS SUMMARY | 2025-04-07 07:12 | XMS_ITS ---
Author Organization [facility] [address] [facility] lding Address [address] [facility] [place] [address] Phone Care Team Providers Care Social Sciences Professor Name Role Phone Clemencia Gorman MD Primary Care Provider Transitional Care Management Status:Ongoing (Active) Start date:03/31/2025 Enrollment date:03/31/2025 Enrollment reason:Identified using hospital discharge data Case Team Name Relationship Phone Ahsan Quevedo LPN(Responsible Staff) Door To Door Salesman Continued Care and Services Coordination
--- OUTSIDE RECORDS SUMMARY | 2025-04-07 07:12 | XMS_ITS ---
Author Organization [facility] [address] [facility] Address [address] [place] [address] Phone Care Team Providers Care Shipyard Laborer Name Role Phone Clemencia Gorman MD Primary Care Provider Post Acute Care Coordination Status:Ongoing (Active) Start date:04/06/2025 Enrollment date:04/06/2025 Enrollment reason:Post acute care coordination Related social drivers of health:[facility] Health Literacy Case Team Name Relationship Phone Chana Cary RN(Responsible Staff) Post Acute Community Relations Rep Continued Care and Services Coordination
--- OUTSIDE RECORDS SUMMARY | 2025-04-07 07:12 | XMS_ITS | Clinical Summary ---
Author Organization [facility] [address] [facility] lding Address [address] [place] [address] Phone Care Team Providers Care Tube Lancer Name Role Phone Clemencia Gorman MD Primary Care Provider Allergies No known active allergies Medications vit B complex no.12/niacin,B3, (VITAMIN B COMPLEX NO.12-NIACIN ORAL) Take by mouth. 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 13 each 03/31/20 25 025 Active aspirin 81 mg EC tablet Take 1 tablet (81 mg total) by mouth 1 (one) time each day. 30 each 04/01/20 25 026 Active atorvastatin (LIPITOR) 40 mg tablet Take 1 tablet (40 mg total) by mouth at bedtime. 30 each 03/31/20 25 026 Active ipratropium-albute roL (DUONEB) 0.5-2.5 mg/3 mL nebulizer solution Take 3 mL by nebulization 3 (three) times a day. 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 Overview (05/06/2024): Seen on xray 2006 Osteopenia 10/02/2013 Overview (05/06/2024): Bone density 03/04/04 Leukopenia 09/02/2013 Alcohol abuse, in remission 08/29/2013 Positive JOJO (antinuclear antibody) 08/06/2006 Overview (05/06/2024): involves right wrist and hand JOJO +; RF neg Lyme Ab neg, anti-DNA neg Polymyalgia rheumatica 06/12/2005 Overview (05/06/2024): Onset Mar 2005 JOJO Pos(2005) Encounters Date Type Department Care Team Description 04/03/2025 Telephone Adult Medicine - [address] [phone] Clemencia Gorman MD 04/03/2025 Telephone Adult [address] [phone] Clemencia Gorman MD 04/02/2025 1:16 PM EST - 04/06/2025 3:44 PM EST Emergency [facility] Emergency [address] [place] [id number] Volodymyr Zavala MD Wyman, Tim, MD Muhoozi, Bannet, MD Mogul, Ashley, MD Zaidi, MD Stone Reyna Warren, MD Corrado, Adam D, MD Generalized weakness (Primary Dx); Hematuria, unspecified type; Aspiration pneumonia of right lower lobe, unspecified aspiration pneumonia type ([facility] V24, [facility] V28); Failure to thrive in adult; Leukopenia, unspecified type; Anemia, unspecified type; Chronic renal failure, stage 3a (CMS/HCC V24, [facility] V28); Alzheimer's dementia without behavioral disturbance, psychotic disturbance, mood disturbance, or anxiety, unspecified dementia severity, unspecified timing of dementia onset ([facility] V24, [facility] V28) Discharge Disposition: Home or Self Care 04/02/2025 Telephone Adult [address] [phone] Clemencia Gorman MD 04/02/2025 Telephone Adult [address] [phone] Richard Hansen RN 03/29/2025 9:18 AM EST - 03/31/2025 5:19 PM EST Hospital Encounter [facility] [address] [place] [phone] Gee Capone MD Bukalo, Nermina, MD Bell, Alistair A, MD Generalized weakness (Primary Dx); Dehydration; Elevated troponin; JESSICA (acute kidney injury) (CMS/[facility] V24); NSTEMI (non-ST elevated myocardial infarction) ([facility] V24, [facility] V28); Traumatic rhabdomyolysis, initial encounter ([facility] V24); Chronic obstructive pulmonary disease, unspecified COPD type ([facility] V24, [facility] V28); Pneumonia of right lower lobe due to infectious organism Discharge Disposition: Home-Health Care [facility] from Last 3 Months Immunizations Immunization Administration Dates Next Due Influenza trivalent, 0.5mL ( Fluad) 65yo and older 02/14/2023,02/25/2019,01/09/2018,2016 Influenza trivalent, 0.5mL, preservative free (Fluarix; FluLaval; Fluzone) ages 6mo and older (Afluria) 3 years and older 01/20/2020,02/10/2016,02/08/2015,2006,03/29/2006 Influenza trivalent, with preservative (Fluzone; Afluria) 6mo and older 02/10/2012 Pneumococcal conjugate 13 va lent (Prevnar 13, PCV13) 2mo and older 11/25/2015 Pneumococcal conjugate 20 va lent (Prevnar 20, PCV 20) 2mo and older 06/11/2023 Td Tetanus diptheria (Tdvax) 7yo and older 06/11/2023 Surgical History Surgery Date Site/Laterality Comments OTHER SURGICAL HISTORY 02/17/98 Left PROCEDURE: HISTORY OTHER; COMMENT: cutaneous B cell lymphoma OTHER SURGICAL HISTORY 09/03/2000 PROCEDURE: HISTORY OTHER; COMMENT: basal cell nose TONSILLECTOMY PROCEDURE: HISTORICAL TONSILLECTOMY COLONOSCOPY 03/19/08 PROCEDURE: HISTORICAL COLONOSCOPY; COMMENT: diverticulosisDr Brandon Medical History Medical History Date Comments Rash and other nonspecific s kin eruption 05/22/2005 DX:Rash and other nonspecifi c skin eruption; COMMENT: large area of skin removed from upper right arm 1997. 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 Brother 2 Alive Father (Age 95) Mother (Age 75) fell Sister (Age 88) alzhiemers Social History Tobacco Use Types Packs/Day Years Used Date Smoking Tobacco: Former Cigarettes 1.5 Q uit: 04/16/1983 Smokeless Tobacco: Never Tobacco Cessation:Counseling Given: Not Answered Alcohol Use Standard Drinks/Week Comments No 11.7 [...] care for your loved ones. For example, childcare attendant or elderly care for an older [...] not to disclose 2024 6:39 PM EST Last Filed Vital Signs Vital Sign Reading [...] Mass Index 15.35 04/02/2025 11:52 PM EST Plan of Treatment Health Maintenance Due Date Last Done Comments Hepatitis A Vaccines (1 of 2 - Risk 2-dose series) 1954 Zoster Vaccines (1 of 2) 1954 RSV Immunization Adult Patients (1 - 1-dose 75+ series) 2012 Depression Screening 04/16/2024 02/07/2024 COVID-19 Vaccine ( - season) 2024 01/07/2024, 03/27/2022, 04/18/2021, Additional history exists Influenza Vaccine (#1) 2024 , 02/14/2023, 03/27/2022, Additional history exists Medicare Annual Wellness Visit 02/06/2025 02/07/2024 Falls Risk Assessment 03/31/2026 03/31/2025, 024 Social Influencers of Health Screening 04/01/2026 04/01/2025 Cholesterol Screening (Lipid Panel) 03/30/2030 03/30/2025, 09/30/2024 DTaP,Tdap,and Td Vaccines (2 - Td or Tdap) 06/11/2033 06/11/2023 Pneumococcal Vaccine: 50+ Years Completed 06/11/2023, 11/25/2015 HIB Vaccines Aged Out No longer eligi ble based on patient's age to complete this topic HPV Vaccines Aged Out No longer eligi ble based on patient's age to complete this topic Hepatitis B Vaccines Aged Out No long er eligible based on patient's age to complete this topic IPV Vaccines Aged Out No longer eligi ble based on patient's age to complete this topic MMR Vaccines Aged Out No longer eligi ble based on patient's age to complete this topic Meningococcal ACWY Vaccine Aged Out N o longer eligible based on patient's age to complete this topic Meningococcal B Vaccine Aged Out No l onger eligible based on patient's age to complete this topic RSV Immunization Patients Under 20 months Aged Out No longer eligible based on patient's age to complete this topic Varicella Vaccines Aged Out No longer eligible based on patient's age to complete this topic Procedures Procedure Name Priority Date/Time Associated Diagnosis Comments CBC WITH AUTO DIFFERENTIAL STAT 04/05/2025 12:05 PM EST BASIC METABOLIC PANEL STAT 04/05/2025 12:05 PM EST CBC AND DIFFERENTIAL STAT 04/05/2025 12:05 PM EST TROPONIN I HIGH SENSITIVITY STAT 04/04/2025 1:56 PM EST CBC WITH AUTO DIFFERENTIAL STAT 04/04/2025 1:56 PM EST BASIC METABOLIC PANEL STAT 04/04/2025 1:56 PM EST CBC AND DIFFERENTIAL STAT 04/04/2025 1:56 PM EST XR CHEST [...] HIGH SENSITIVITY Timed 04/02/2025 1:56 PM EST MAGNESIUM STAT 04/02/2025 1:52 PM EST B-TYPE NATRIURETIC PEPTIDE STAT 04/02/2025 1:52 PM EST CBC WITH AUTO DIFFERENTIAL STAT 04/02/2025 1:52 PM EST LACTATE, WITH REFLEX STAT 04/02/2025 1:52 PM EST CBC AND DIFFERENTIAL STAT 04/02/2025 1:52 PM EST BASIC METABOLIC PANEL STAT 04/02/2025 1:52 PM EST PEP THERAPY Routine 03/31/2025 8:17 AM EST PEP THERAPY Routine 03/31/2025 8:17 AM EST CBC WITH AUTO DIFFERENTIAL Routine 03/31/2025 6:05 AM EST MAGNESIUM Timed 03/31/2025 6:05 AM EST CBC AND DIFFERENTIAL Routine 03/31/2025 6:05 AM EST BASIC METABOLIC PANEL Routine 03/31/2025 6:05 AM EST HEPARIN AND LOW MOLECULAR WEIGHT ANTI XA LEVEL Timed 03/31/2025 2:34 AM EST HEPARIN AND LOW MOLECULAR WEIGHT ANTI XA LEVEL Timed 03/30/2025 8:26 PM EST HEPARIN AND LOW MOLECULAR WEIGHT ANTI XA LEVEL Timed 03/30/2025 2:26 PM EST TRANSTHORACIC ECHOCARDIOGRAM (TTE) COMPLETE W/ CONTRAST Routine 03/30/2025 10:02 AM EST NSTEMI (non-ST elevated myocardial infarction) (CMS/HCC V24, CMS/HCC V28) VITAMIN B12 AND FOLATE STAT Add-on 8:10 AM EST RETICULOCYTE COUNT STAT Add-on 03/30/2025 8: 10 AM EST FERRITIN STAT Add-on 03/30/2025 8:10 AM EST IRON AND TIBC STAT Add-on 03/30/2025 8:10 AM EST CREATINE KINASE STAT 03/30/2025 8:10 AM EST TROPONIN I HIGH SENSITIVITY Routine 03/30/2025 8:10 AM EST HEPARIN AND LOW MOLECULAR WEIGHT ANTI XA LEVEL Timed 03/30/2025 8:10 AM EST LIPID PANEL WITH REFLEX TO DIRECT LDL Routine 03/30/2025 8:10 AM EST COMPLETE BLOOD COUNT Routine 03/30/2025 8:10 AM EST BASIC METABOLIC PANEL Routine 03/30/2025 8:10 AM EST HEPARIN AND LOW MOLECULAR WEIGHT ANTI XA LEVEL Timed 03/30/2025 2:50 AM EST ECG ANNOTATED 03/30/2025 TROPONIN I HIGH SENSITIVITY Routine 03/29/2025 8:57 PM EST CREATINE KINASE STAT 03/29/2025 8:57 PM EST HEPARIN AND LOW MOLECULAR WEIGHT ANTI XA LEVEL Timed 03/29/2025 8:[address] CHEST WO CONTRAST STAT 03/29/2025 4:51 PM EST HEPARIN AND LOW MOLECULAR WEIGHT ANTI XA LEVEL STAT 03/29/2025 2:54 PM EST ACTIVATED PARTIAL THROMBOPLASTIN TIME STAT 03/29/2025 2:54 PM EST PROTHROMBIN TIME WITH INR STAT 03/29/2025 2:54 PM EST MAJOR URINE CULTURE TUBE STAT 03/29/2025 2:24 PM EST URINALYSIS WITH REFLEX MICROSCOPIC AND CULTURE STAT 03/29/2025 2:24 PM EST URINALYSIS WITH REFLEX MICROSCOPIC AND CULTURE STAT 03/29/2025 2:24 PM EST ECG 12-LEAD STAT 03/29/2025 2:16 PM EST TROPONIN I HIGH SENSITIVITY STAT 03/29/2025 2:08 PM EST THYROID STIMULATING HORMONE WITH REFLEX TO FREE T4 AND FREE T3 Add-On 03/29/2025 1:53 PM EST PROCALCITONIN Add-On 03/29/2025 1:53 PM EST BASIC METABOLIC PANEL STAT 03/29/2025 1:53 PM EST LACTATE, WITH REFLEX Timed 03/29/2025 1:53 PM EST TROPONIN I HIGH SENSITIVITY Timed 03/29/2025 12:44 PM EST XR CHEST 2 VIEWS STAT 03/29/2025 12:[address] HEAD WO CONTRAST STAT 03/29/2025 1 0:39 AM EST LACTATE, WITH REFLEX STAT 03/29/2025 10:13 AM EST RESPIRATORY VIRUS PANEL MOLECULAR STUDY STAT 03/29/2025 10:13 AM EST MANUAL DIFFERENTIAL - SYSMEX WAM STAT 03/29/2025 10:11 AM EST CBC WITH AUTO DIFFERENTIAL STAT 03/29/2025 10:11 AM EST CREATINE KINASE STAT 03/29/2025 10:11 AM EST B-TYPE NATRIURETIC PEPTIDE STAT 03/29/2025 10:11 AM EST MAGNESIUM STAT 03/29/2025 10:11 AM EST LIPASE STAT 03/29/2025 10:11 AM EST COMPREHENSIVE METABOLIC PANEL STAT 03/29/2025 10:11 AM EST CBC AND DIFFERENTIAL STAT 03/29/2025 10:11 AM EST TROPONIN I HIGH SENSITIVITY Timed 03/29/2025 10:11 AM EST ECG 12-LEAD STAT 03/29/2025 9:42 AM EST DEPRESSION SCREENING Routine 02/07/2024 FALLS RISK ASSESSMENT Routine 02/07/2024 from Last 3 Months or Most Recently Relevant to Health Maintenance Results * (ABNORMAL) CBC auto differential (04/05/2025 12:05 PM EST) Only the most recent of5 resultswithin the time period is included. WBC 3.6(L) 4.8 - 10.8 K/mcL LAB HEMETOLOGY METHOD 04/05/2025 12:22 PM [facility] RBC 3.20(L) 4.50 - 5.50 M/mcL LAB HEMETOLOGY METHOD 04/05/2025 12:22 PM [facility] Hemoglobin 10.6(L) 13.5 - 17.5 g/dL LAB HEMETOLOGY METHOD 04/05/2025 12:22 PM [facility] Hematocrit 30.8(L) 42.0 - 54.0 % LAB HEMETOLOGY METHOD 04/05/2025 12:22 PM [facility] MCV 96.6 79.0 - 98.0 FL LAB HEMETOLOGY METHOD 04/05/2025 12:22 PM [facility] MCH 33.2(H) 27.0 - 32.0 pcg LAB HEMETOLOGY METHOD 04/05/2025 12:22 PM [facility] MCHC 34.4 32.0 - 37.0 g/dL LAB HEMETOLOGY METHOD 04/05/2025 12:22 PM [facility] RDW 13.2 11.0 - 15.0 % LAB HEMETOLOGY METHOD 04/05/2025 12:22 PM [facility] Platelets 164 130 - 400 K/mcL LAB HEMETOLOGY METHOD 04/05/2025 12:22 PM [facility] MPV 9.0 7.0 - 11.0 FL LAB HEMETOLOGY METHOD 04/05/2025 12:22 PM [facility] NRBC 0.0 <1.0 % LAB HEMETOLOGY METHOD 04/05/2025 12:22 PM [facility] NRBC Absolute 0.00 <0.10 K/mcL LAB HEMETOLOGY METHOD 04/05/2025 12:22 PM [facility] Neutrophils Relative 62.7 % LAB HEMETOLOGY METHOD 04/05/2025 12:22 PM [facility] Lymphocytes Relative 21.7 % LAB HEMETOLOGY METHOD 04/05/2025 12:22 PM [facility] Monocytes Relative 13.2 % LAB HEMETOLOGY METHOD 04/05/2025 12:22 PM [facility] Eosinophils Relative 1.6 % LAB HEMETOLOGY METHOD 04/05/2025 12:22 PM [facility] Basophils Relative 0.5 % LAB HEMETOLOGY METHOD 04/05/2025 12:22 PM [facility] Immature Granulocytes Relative 0.3 % LAB HEMETOLOGY METHOD 04/05/2025 12:22 PM [facility] Neutrophils Absolute 2.28 1.50 - 7.00 K/mcL LAB HEMETOLOGY METHOD 04/05/2025 12:22 PM [facility] Lymphocytes Absolute 0.79(L) 1.00 - 5.00 K/mcL LAB HEMETOLOGY METHOD 04/05/2025 12:22 PM [facility] Monocytes Absolute 0.48 0.20 - 1.00 K/mcL LAB HEMETOLOGY METHOD 04/05/2025 12:22 PM [facility] Eosinophils Absolute 0.06 0.00 - 0.50 K/mcL LAB HEMETOLOGY METHOD 04/05/2025 12:22 PM [facility] Basophils Absolute 0.02 0.00 - 0.20 K/[facility] LAB HEMETOLOGY METHOD 04/05/2025 12:22 PM [facility] Immature Granulocytes Absolute 0.01 0.00 - 0.03 K/[facility] LAB HEMETOLOGY METHOD 04/05/2025 12:22 PM [facility] Blood Venous blood specimen / Unknown Venipuncture / Unknown 04/05/2025 12:05 PM EST 04/05/2025 12:18 PM EST us Martha Carvalho MD LAB BLOOD ORDERABLES Final Resul t [facility] [address] [place] [address], * (ABNORMAL) Basic Metabolic Panel (BMP) (04/05/2025 12:05 PM EST) Only the most recent of6 resultswithin the time period is included. Sodium 145 133 - 145 mmol/L 04/05/2025 12:44 PM [facility] Potassium 4.3 3.5 - 5.5 mmol/L 04/05/2025 12:44 PM [facility] Chloride 107 96 - 110 mmol/L 04/05/2025 12:44 PM [facility] CO2 32 21 - 32 mmol/L 04/05/2025 12:44 PM [facility] Anion Gap 6 3 - 11 04/05/2025 12:44 PM [facility] Glucose 111(H) 70 - 100 mg/dL 04/05/2025 12:44 PM [facility] BUN 23 5 - 25 mg/dL 04/05/2025 12:44 PM EST [facility] Creatinine 1.31(H) 0.70 - 1.30 mg/dL 04/05/2025 12:44 PM [facility] eGFR 53(L) >=60 mL/min/1. 73m2 04/05/2025 12:44 PM EST [facility] Comment:Calculation based on the Chronic Kidney Disease Epidemiology Collaboration (CKD-EPI) equation refit without adjustment for race. BUN/Creatinine Ratio 17.6 04/05/2025 12:44 PM [facility] Calcium 9.7 8.5 - 10.5 mg/dL 04/05/2025 12:44 PM [facility] Blood Venous blood specimen / Unknown Venipuncture / Unknown 04/05/2025 12:05 PM EST 04/05/2025 12:18 PM EST us Martha Carvalho MD LAB BLOOD ORDERABLES Final Resul t [facility] [address] [place] [address], [place] [phone] * Troponin I high sensitivity (04/04/2025 1:56 PM EST) Only the most recent of8 resultswithin the time period is included. High Sensitivity Troponin I 29 <=53 ng/L 04/04/2025 2:40 PM EST [facility] Blood Venous blood specimen / Unknown Venipuncture / Unknown 04/04/2025 1:56 PM EST 04/04/2025 2:15 PM EST us Martha Carvalho MD LAB BLOOD ORDERABLES Final Resul t [facility] [address] [place] [address], [place] [phone] * XR Chest 1 View (04/04/2025 10:18 AM EST) Only the most recent of2 resultswithin the time period is included. Anatomical Region Laterality Modality Body Radiographic Darby ging 04/04/2025 10:5 2 AM EST Impressions 04/04/2025 10:54 AM EST Stable radiographic appearance of the chest. -------- FINAL REPORT -------- Dictated By: Kevin Kyle Dictated Date: 04/04/2025 10:52 ET Assigned Physician: Kevin Kyle Reviewed and Electronically Signed By: Kevin Kyle Signed Date: 04/04/2025 10:54 ET Workstation ID: [id number] Transcribed By: Self Edit Transcribed Date: 04/04/2025 [...] chest. -------- FINAL REPORT -------- Dictated By: Snodgress, Kevin Dictated Date: 04/04/2025 10:52 ET Assigned Physician: Kevin Kyle Reviewed and Electronically Signed By: Kevin Kyle Signed Date: 04/04/2025 10:54 ET Workstation ID: [id number] Transcribed By: Self Edit Transcribed Date: 04/04/2025 10:52 ET Martha Carvalho MD IMG XR PROCEDURES Final Result * (ABNORMAL) Urinalysis with reflex microscopic (04/02/2025 4:01 PM EST) Specific [place] Urine 1.017 1.003 - 1.030 LAB URINALYSIS - AUTOMATED METHOD 04/02/2025 4:59 PM [facility] pH, Urine 6.0 5.0 - 8.0 pH LAB URINALYSIS - AUTOMATED METHOD 04/02/2025 4:59 PM [facility] Leukocytes, Urine Negative Negative LAB URINALYSIS - AUTOMATED METHOD 04/02/2025 4:59 PM [facility] Nitrite, Urine Negative Negative LAB URINALYSIS - AUTOMATED METHOD 04/02/2025 4:59 PM [facility] Protein, Urine 30(A) <=Trace mg/dL LAB URINALYSIS - AUTOMATED METHOD 04/02/2025 4:59 PM [facility] Glucose, Urine Negative Negative mg/dL LAB URINALYSIS - AUTOMATED METHOD 04/02/2025 4:59 PM [facility] Ketones, Urine 15(A) Negative mg/dL LAB URINALYSIS - AUTOMATED METHOD 04/02/2025 4:59 PM [facility] Urobilinogen, Urine 0.2 0.2 - 1.0 mg/dL LAB URINALYSIS - AUTOMATED METHOD 04/02/2025 4:59 PM [facility] Bilirubin, Urine Negative Negative LAB URINALYSIS - AUTOMATED METHOD 04/02/2025 4:59 PM [facility] Blood, Urine Small(A) Negative LAB URINALYSIS - AUTOMATED METHOD 04/02/2025 4:59 PM [facility] RBC, Urine 10(H) 0 - 4 /HPF 04/02/2025 4:59 PM [facility] WBC, Urine 5(H) 0 - 4 /HPF 04/02/2025 4:59 PM [facility] Squamous Epithelial, Urine 10 0 - 60 /LPF 04/02/2025 4:59 PM [facility] Bacteria, Urine Negative Negative /HPF 04/02/2025 4:59 PM [facility] Hyaline Casts, Urine 4(H) 0 - 3 /LPF 04/02/2025 4:59 PM [facility] Urine Urine specimen obtained by clean catch procedure / Unknown Non-blood Collection / Unknown 04/02/2025 4:01 PM EST 04/02/2025 4:14 PM EST Volodymyr Zavala MD LAB URINE ORDERABLES Final Result [facility] [address] [place] [address], [place] [phone] * Major urine culture tube (04/02/2025 4:00 PM EST) Only the most recent of2 resultswithin the time period is included. Extra Tube Hold for add-ons. 04/02/2025 6:01 PM EST [facility] Comment:Auto resulted. Urine Urine specimen obtained by clean catch procedure / Unknown 04/02/2025 4:00 PM EST 04/02/2025 4:15 PM EST Volodymyr Zavala MD LAB URINE ORDERABLES Final Result Performing Organization Address [facility]/ZIP Co de Phone Number [facility] [address] [place] [address], [place] [phone] * 12-Lead ECG (04/02/2025 2:00 PM EST) Only the most recent of3 resultswithin the time period is included. Pathologist [facility] Ventricular Rate ECG 68 BPM GEMUSE Atrial Rate 68 BPM GEMUSE P-R Interval 146 ms GEMUSE QRS Duration 116 ms GEMUSE Q-T Interval 394 ms GEMUSE QTc 418 ms GEMUSE P Wave [place] 77 degrees GEMUSE R [place] 74 degrees GEMUSE T [place] 63 degrees GEMUSE ECG Interpretation Normal sinus rhythm Incomplete right bundle branch block When compared with ECG of 29-MAR-2025 14:16, No significant change was found Confirmed by ABNER MYERS ([id number]) on 04/02/2025 11:23:32 PM GEMUSE 04/02/2025 2:00 PM EST 04/02/2025 11:23 PM EST us Volodymyr Zavala MD ECG ORDERABLES Final Resul t Performing Organization Address City/[facility] Co de Phone Number GEMUSE * Lactate, with reflex (04/02/2025 1:52 PM EST) Only the most recent of3 resultswithin the time period is included. [facility] LACTIC ACID 1.0 0.4 - 2.0 mmol/L 04/02/2025 2:52 PM EST [facility] Blood Venous blood specimen / Unknown Venipuncture / Unknown 04/02/2025 1:52 PM EST 04/02/2025 2:12 PM EST us Volodymyr Zavala MD LAB BLOOD ORDERABLES Final Result Performing Organization Address City/[facility]/ZIP Co de Phone Number [facility] [address] [place] [address], [place] [phone] * B-Type Natriuretic Peptide (BNP) (04/02/2025 1:52 PM EST) Only the most recent of2 resultswithin the time period is included. [facility] BNP 68 <=100 pcg/mL 04/02/2025 2:47 PM EST [facility] Blood Venous blood specimen / Unknown Venipuncture / Unknown 04/02/2025 1:52 PM EST 04/02/2025 2:12 PM EST Narrative [facility] - 04/02/2025 2:47 PM EST Over the counter supplements containing high doses of biotin may interfere with this assay. If interference is suspected, patients shoud be retested after refraining from biotin supplements for 72 hours. Volodymyr Zavala MD LAB BLOOD ORDERABLES Final Result Performing Organization Address City/[facility]/ZIP Co de Phone Number [facility] [address] [place] [address], [place] [phone] * Magnesium (04/02/2025 1:52 PM EST) Only the most recent of3 resultswithin the time period is included. Magnesium 2.2 1.9 - 2.6 mg/dL 04/02/2025 2:51 PM EST [facility] Blood Venous blood specimen / Unknown Venipuncture / Unknown 04/02/2025 1:52 PM EST 04/02/2025 2:12 PM EST Volodymyr Zavala MD LAB BLOOD ORDERABLES Final Result Performing Organization Address City/[facility]/ZIP Co de Phone Number [facility] [address] [place] [address], [place] [phone] * Anti-Xa - Every 6 Hours (03/31/2025 2:34 AM EST) Only the most recent of7 resultswithin the time period is included. Heparin Anti-Xa 0.35 0.30 - 0.70 I Unit/mL LAB COAGULATION METHOD 03/31/2025 3:14 AM EST [facility] Blood Venous blood specimen / Unknown Venipuncture / Unknown 03/31/2025 2:34 AM EST 03/31/2025 2:41 AM EST Narrative [facility] - 03/31/2025 3:14 AM EST Therapeutic range listed is for Unfractionated Heparin. LMW Heparin therapeutic range: 0.50-1.20 IU/mL us Francois Haji MD LAB BLOOD ORDERABLES Final Res ult [facility] [address] [place] [address], [place] [phone] * (ABNORMAL) TRANSTHORACIC ECHOCARDIOGRAM (TTE) COMPLETE W/ CONTRAST (03/30/2025 10:02 AM EST) Left Atrium Major [place] 3.9 cm CV PACS LA Area Sys (A4C) 12 cm2 CV PACS RA Area 11.6 cm2 CV PACS RA 2D Volume 25 mL CV PACS Aortic Sinus Valsalva 3.6 cm CV PACS Ascending Aorta 3.2 cm CV PACS LVIDD 3.9(A) 4.2 - 5.8 cm CV PACS LVIDS 2.5 2.5 - 4.0 cm CV PACS LVOT Diameter 2.4 cm CV PACS LVOT Mean Fausto 0.4 m/s CV PACS LVOT Mean Grad 1 mmHg CV PACS LVOT Peak VTI 14.2 cm CV PACS LVOT Peak Fausto 0.6 m/s CV PACS LVOT Peak Gradient 2 mmHg CV PACS LVOT Area 4.5 cm2 CV PACS LVOT Stroke Volume 64 mL CV PACS MV Deceleration Buchanan 1.6 m/s2 CV PACS E Wave Deceleration Time 211 119 - 242 ms CV PACS MV PHT 62 ms CV PACS MV Peak A Fausto 0.40 m/s CV PACS MV Peak E Fausto 0.33 m/s CV PACS MV Area PHT 3.6 cm2 CV PACS PV Acceleration Time 116 ms CV PACS PV Acceleration Time 116 ms CV PACS RV Diastolic Basal Dimension 3.3 2.5 - 4.1 cm CV PACS TR Peak Velocity 2.27 m/s CV PACS TR Peak Gradient 21 mmHg CV PACS LVOT Stroke Index 44 mL/m2 CV PACS FS 36 % CV PACS Ascending Aorta Index 2.22 cm/m2 CV PACS LVOT flow 181 mL/s CV PACS RA 2D Volume Index 17 mL/m2 CV PACS LVIDD Index 2.71 cm/m2 CV PACS LVIDS Index 1.74 cm/m2 CV PACS E/A Ratio 0.8 CV PACS BSA 1.46 m2 CV PACS Anatomical Region Laterality Modality Ultrasound Narrative 03/30/2025 10:58 AM EST This was a technically very limited study. 1. There is grossly preserved LV systolic function with estimated ejection fraction 55%. Cannot comment reliably on wall motion due to off axis visualization and apical foreshortening and apical views. There are no obvious regional wall motion abnormalities of the basal and middle segments. 2. There is no Doppler evidence of hemodynamically significant valve disease of the mitral, tricuspid, and pulmonic valves. Aortic valve Doppler signal was suboptimal but the valve clearly opens normally on 2D imaging and there is no color Doppler evidence of aortic insufficiency. Left Ventricle Left ventricle cavity size is normal. Wall thickness was not well visualized. Systolic function is normal with an ejection fraction of 55% by visual assessment. Regional LV wall motion cannot be accurately assessed due to poor image quality. Basal and middle segments appear to have normal regional wall motion. Apical duke were foreshortened so cannot comment on these. Unable to assess diastolic function. Right Ventricle Right ventricle was not well visualized. Cannot assess Left Atrium Left atrium cavity appears to be normal. Right Atrium Right atrium cavity is normal. IVC/SVC Inferior vena cava was not well visualized. Mitral Valve The mitral valve was not well visualized. Grossly, appears mildly thickened. There is mild annular calcification. There is grossly trace regurgitation. There is no evidence of mitral valve stenosis. Tricuspid Valve Tricuspid valve structure is normal. There is trace to mild regurgitation. There is no evidence of tricuspid valve stenosis. Aortic Valve The aortic valve is trileaflet. The leaflets exhibit normal excursion. There is no regurgitation. Unable to assess aortic valve stenosis due to poor Doppler exam. Pulmonic Valve Visualized portions of the pulmonic valve appear normal. No significant pulmonic valve regurgitation. There is no evidence of pulmonic valve stenosis. Ascending Aorta The aorta appears normal in size. Pericardium Pericardium was not well visualized. Study Details Overall the study quality was technically difficult. Definity contrast was given to enhance imaging. Study was difficult due to: poor endocardial visualization, patient body habitus, low parasternal window, procedure performed with the patient in a supine position, lung artifact and poor acoustic windows. Wall Scoring Baseline Score Index: 1.00 The left ventricular wall motion is normal. Mitch OLEA CV ECHO PROCEDURES Final Result * Vitamin B12 and folate (03/30/2025 8:10 AM EST) Vitamin B-12 850 211 - 911 pcg/mL 03/30/2025 2:40 PM EST [facility] Folate 23.4 >=5.4 ng/ml 03/30/2025 2:40 PM EST [facility] Comment:Over the counter sup plements containing high doses of biotin may interfere with this assay. If interference is suspected, patients shoud be retested after refraining from biotin supplements for 72 hours. Blood Venous blood specimen / Unknown Venipuncture / Unknown 03/30/2025 8:10 AM EST 03/30/2025 8:14 AM EST Nirmala OLEA LAB BLOOD ORDERABLES Final Result [facility] [address] [place] [address], [place] [phone] * Lipid panel with reflex to direct LDL (03/30/2025 8:10 AM EST) Cholesterol 100 0 - 200 mg/dL 03/30/2025 8:46 AM EST [facility] Triglycerides 60 0 - 150 mg/dL 03/30/2025 8:46 AM EST [facility] HDL 50 >=40 mg/dL 03/30/2025 8:46 AM EST [facility] LDL Calculated 38 0 - 100 mg/dL 03/30/2025 8:46 AM EST [facility] Comment:Estimated LDL is sea culated using the Friedewald equation: Total cholesterol - HDL cholesterol - (Triglycerides/5) VLDL Cholesterol Sea 12 mg/dL 03/30/2025 8:46 AM [facility] Non HDL Chol. (LDL+VLDL) 50 <145 mg/dL 03/30/2025 8:46 AM [facility] Chol/HDL Ratio 2.0 0.0 - 4.4 03/30/2025 8:46 AM [facility] Blood Venous blood specimen / Unknown Venipuncture / Unknown 03/30/2025 8:10 AM EST 03/30/2025 8:14 AM EST Mitch OLEA LAB BLOOD ORDERABLES Final Resu lt Performing Organization Address City/[facility]/ZIP Co de Phone Number [facility] [address] [place] [address], [place] [phone] * (ABNORMAL) Iron and TIBC (03/30/2025 8:10 AM EST) Iron 31(L) 50 - 160 mcg/dL 03/30/2025 2:37 PM [facility] TIBC 173(L) 250 - 450 mcg/dL 03/30/2025 2:37 PM [facility] Iron Saturation 18(L) 20 - 50 % 2:37 PM [facility] Blood Venous blood specimen / Unknown Venipuncture / Unknown 03/30/2025 8:10 AM EST 03/30/2025 8:14 AM EST Nirmala OLEA LAB BLOOD ORDERABLES Final Result Performing Organization Address City/[facility]/ZIP Co de Phone Number [facility] [address] [place] [address], [place] [phone] * Reticulocyte count (03/30/2025 8:10 AM EST) Retic Ct Abs 0.045 0.030 - 0.090 M/[facility] HEMETOLOGY METHOD 03/30/2025 2:13 PM EST [facility] Retic Ct Pct 1.5 0.7 - 1.7 % LAB HEMETOLOGY METHOD 03/30/2025 2:13 PM [facility] Immature Retic Fract 9.4 2.3 - 15.9 % LAB HEMETOLOGY METHOD 03/30/2025 2:13 PM [facility] Reticulocyte Hemoglobin 35.3 >29.0 pcg LAB HEMETOLOGY METHOD 03/30/2025 2:13 PM [facility] Blood Venous blood specimen / Unknown Venipuncture / Unknown 03/30/2025 8:10 AM EST 03/30/2025 8:14 AM EST Nirmala OLEA LAB BLOOD ORDERABLES Final Result [facility] [address] [place] [address], [place] [phone] * (ABNORMAL) Complete blood count (03/30/2025 8:10 AM EST) Pathologist [facility] WBC 6.8 4.8 - 10.8 K/mcL LAB HEMETOLOGY METHOD 03/30/2025 8:22 AM EST [facility] RBC 3.00(L) 4.50 - 5.50 M/[facility] HEMETOLOGY METHOD 03/30/2025 8:22 AM [facility] Hemoglobin 10.3(L) 13.5 - 17.5 g/dL LAB HEMETOLOGY METHOD 03/30/2025 8:22 AM EST [facility] Hematocrit 29.8(L) 42.0 - 54.0 % LAB HEMETOLOGY METHOD 03/30/2025 8:22 AM EST [facility] MCV 98.3(H) 79.0 - 98.0 FL LAB HEMETOLOGY METHOD 03/30/2025 8:22 AM EST [facility] MCH 34.0(H) 27.0 - 32.0 pcg LAB HEMETOLOGY METHOD 03/30/2025 8:22 AM EST [facility] MCHC 34.6 32.0 - 37.0 g/dL LAB HEMETOLOGY METHOD 03/30/2025 8:22 AM EST [facility] RDW 13.8 11.0 - 15.0 % LAB HEMETOLOGY METHOD 03/30/2025 8:22 AM [facility] Platelets 151 130 - 400 K/mcL LAB HEMETOLOGY METHOD 03/30/2025 8:22 AM EST [facility] MPV 9.3 7.0 - 11.0 FL LAB HEMETOLOGY METHOD 03/30/2025 8:22 AM EST [facility] NRBC 0.0 <1.0 % LAB HEMETOLOGY METHOD 03/30/2025 8:22 AM [facility] NRBC Absolute 0.00 <0.10 K/mcL LAB HEMETOLOGY METHOD 03/30/2025 8:22 AM [facility] Blood Venous blood specimen / Unknown Venipuncture / Unknown 03/30/2025 8:10 AM EST 03/30/2025 8:14 AM EST us Francois Haji MD LAB BLOOD ORDERABLES Final Res ult [facility] [address] [place] [address], [place] [phone] * (ABNORMAL) Ferritin (03/30/2025 8:10 AM EST) Ferritin 861(H) 11 - 307 ng/mL 03/30/2025 2:40 PM EST [facility] Blood Venous blood specimen / Unknown Venipuncture / Unknown 03/30/2025 8:10 AM EST 03/30/2025 8:14 AM EST [facility] BLOOD ORDERABLES Final Result Performing Organization Address [facility] Phone Number [facility] [address] [place] [address], [place] [phone] * (ABNORMAL) Creatine kinase (03/30/2025 8:10 AM EST) Only the most recent of3 resultswithin the time period is included. Pathologist [facility] Total CK 343(H) 46 - 171 unit/L 03/30/2025 8:46 AM EST [facility] Blood Venous blood specimen / Unknown Venipuncture / Unknown 03/30/2025 8:10 AM EST 03/30/2025 8:14 AM EST Nirmala Reyes [facility] BLOOD ORDERABLES Final Result Performing Organization Address [facility] Phone Number [facility] [address] [place] [address], [place] [phone] * ECG-Annotated (03/30/2025) Provider Onbase MD ECG ORDERABLES Final Result * CT Chest wo Contrast (03/29/2025 4:51 PM EST) Anatomical Region Laterality Modality Body Computed Tomogra phy 03/29/2025 5:08 PM EST Impressions 03/29/2025 5:08 PM EST Impression: 1. Dependent consolidative opacity within right lower lobe concerning for aspiration or pneumonia. There is right lower lobe endobronchial mucous plugging as well as debris within the trachea, increasing risk for aspiration. 2. Additional chronic findings as described above. This document has been electronically signed by: Christopher Howard MD on 03/29/2025 17:08:25 Narrative 03/29/2025 5:08 PM EST INDICATION: SOB, abn CXR, heart failure suspected [...] no definable fracture lines or paravertebral stranding. Procedure Note Christopher Howard MD - 03/29/2025 INDICATION: SOB, abn CXR, heart failure suspected Exam: Unenhanced CT chest with multiplanar reformats. Comparison: Same day chest x-ray. Findings: Lungs reveal dependent consolidative opacity within the right lower lobe, concerning for pneumonia. No other focal consolidation. A4-5 mm right middle lobe nodule is noted (4; 121). No other pulmonarynodules or parenchymal lesions. There are moderate paraseptal and centrilobular emphysematous changes. There is mucous plugging within right lower lobe. There is dependent debris within the trachea (for example, 4; 47),raising concern for aspiration. Remaining airways are generally [...] appear remote with no definable fracture lines orparavertebral stranding. IMPRESSION: Impression: 1. Dependent consolidative opacity within right lower lobe concerningfor aspiration or pneumonia. There is right lower lobe endobronchial mucous plugging as well as debris within the trachea, increasing risk for aspiration. 2. Additional chronic findings as described above. This document has been electronically signed by: Christopher Howard MD on 03/29/2025 17:08:[address] PROCEDURES Final Result * Activated Partial Thromboplastin Time - STAT (03/29/2025 2:54 PM EST) aPTT 27.5 24.1 - 39.3 sec LAB COAGULATION METHOD 03/29/2025 3:16 PM EST [facility] Blood Venous blood specimen / Unknown Venipuncture / Unknown 03/29/2025 2:54 PM EST 03/29/2025 2:59 PM EST Francois Haji MD LAB BLOOD ORDERABLES Final Res ult [facility] [address] [place] [address], [place] [phone] * Prothrombin Time with INR - STAT (03/29/2025 2:54 PM EST) Protime 12.5 10.6 - 13.9 sec LAB COAGULATION METHOD 03/29/2025 3:16 PM EST [facility] INR 1.0 LAB COAGULATION METHOD 03/29/2025 3:16 PM EST [facility] Blood Venous blood specimen / Unknown Venipuncture / Unknown 03/29/2025 2:54 PM EST 03/29/2025 2:59 PM EST us Francois Haji MD LAB BLOOD ORDERABLES Final Res ult [facility] [address] [place] [address], * (ABNORMAL) Urinalysis with reflex microscopic and culture (03/29/2025 2:24 PM EST) Specific [place] Urine 1.019 1.003 - 1.030 LAB URINALYSIS - AUTOMATED METHOD 03/29/2025 4:07 PM [facility] pH, Urine 6.0 5.0 - 8.0 pH LAB URINALYSIS - AUTOMATED METHOD 03/29/2025 4:07 PM [facility] Leukocytes, Urine Negative Negative LAB URINALYSIS - AUTOMATED METHOD 03/29/2025 4:07 PM [facility] Nitrite, Urine Negative Negative LAB URINALYSIS - AUTOMATED METHOD 03/29/2025 4:07 PM [facility] Protein, Urine 30(A) <=Trace mg/dL LAB URINALYSIS - AUTOMATED METHOD 03/29/2025 4:07 PM [facility] Glucose, Urine Negative Negative mg/dL LAB URINALYSIS - AUTOMATED METHOD 03/29/2025 4:07 PM [facility] Ketones, Urine Negative Negative mg/dL LAB URINALYSIS - AUTOMATED METHOD 03/29/2025 4:07 PM [facility] Urobilinogen , Urine 0.2 0.2 - 1.0 mg/dL LAB URINALYSIS - AUTOMATED METHOD 03/29/2025 4:07 PM [facility] Bilirubin, Urine Negative Negative LAB URINALYSIS - AUTOMATED METHOD 03/29/2025 4:07 PM [facility] Blood, Urine Moderate(A) Negative LAB URINALYSIS - AUTOMATED METHOD 03/29/2025 4:07 PM [facility] RBC, Urine 4 0 - 4 /HPF 03/29/2025 4:07 PM EST [facility] WBC, Urine 4 0 - 4 /HPF 03/29/2025 4:07 PM [facility] Squamous Epithelial, Urine 5 0 - 60 /LPF 03/29/2025 4:07 PM [facility] Non-Squamous Epithelial, Urine 2-5 Transitional epithelial cells. /LPF 03/29/2025 4:07 PM [facility] Bacteria, Urine Negative Negative /HPF 03/29/2025 4:07 PM [facility] Hyaline Casts, Urine 5(H) 0 - 3 /LPF 03/29/2025 4:07 PM [facility] Other Casts, Urine Rare Fine Granular casts. /LPF 03/29/2025 4:07 PM [facility] Urine Urine specimen obtained by clean catch procedure / Unknown Non-blood Collection / Unknown 03/29/2025 2:24 PM EST 03/29/2025 3:25 PM EST us Gee Capone MD LAB URINE ORDERABLES Final Res ult Performing Organization Address [facility]/ZIP Co de Phone Number [facility] [address] [place] [address], [place] [phone] * Thyroid stimulating hormone with reflex to free t4 and free t3 (03/29/2025 1:53 PM EST) TSH 0.54 0.40 - 4.00 mcIU/mL 03/29/2025 5:58 PM [facility] Blood Venous blood specimen / Unknown Venipuncture / Unknown 03/29/2025 1:53 PM EST 03/29/2025 2:19 PM EST us Mitch OLEA LAB BLOOD ORDERABLES Final Resu lt Performing Organization Address City/[facility]/ZIP Co de Phone Number [facility] [address] [place] [address], [place] [phone] * (ABNORMAL) Procalcitonin (03/29/2025 1:53 PM EST) Procalcitonin 4.10(H) <=0.05 ng/mL 03/29/2025 5:45 PM EST [facility] Blood Venous blood specimen / Unknown Venipuncture / Unknown 03/29/2025 1:53 PM EST 03/29/2025 2:19 PM EST Narrative [facility] - 03/29/2025 5:45 PM EST Procalcitonin > 2.00 ng/ml: Procalcitonin Levels above 2.00 ng/ml, on the first day of ICU admission represent a high risk for progression to severe sepsis and/or septic shock. Procalcitonin < 0.50 ng/ml: Procalcitonin levels below 0.50 ng/ml on the first day of ICU admission represent a low risk for progression to severe sepsis and/or septic shock. Concentrations <0.5 ng/mL do not exclude an infection, on account of local ized infections (without systemic signs) which can be associated with such low concentrations, or a systemic infection in its initial stages (<6 hours). Furthermore, increased procalcitonin can occur without infection. PCT concentrations between 0.5 and 2.0 ng/mL should be interpreted taking into account the patient's history. It is recommended to retest PCT within 6-24 hours if any concentrations <2.0 ng/mL are obtained. us Mitch OLEA LAB BLOOD ORDERABLES Final Resu lt [facility] [address] [place] [address], [place] [phone] * XR Chest 2 Views (03/29/2025 12:23 PM EST) Anatomical Region Laterality Modality Body Radiographic Darby ging 03/29/2025 12:2 5 PM EST Impressions 03/29/2025 12:26 PM EST Severe emphysematous changes with right upper and lower lobe infiltrates and small right pleural effusion. -------- FINAL REPORT -------- Dictated By: Lorena Dewey Dictated Date: 03/29/2025 12:25 ET Assigned Physician: Lorena Dewey Reviewed and Electronically Signed By: Lorena Dewey Signed Date: 03/29/2025 12:26 ET Workstation ID: [id number] Transcribed By: Self Edit Transcribed Date: 03/29/2025 12:25 ET Narrative 03/29/2025 12:26 PM EST INDICATION: Chest pain FINDINGS: Single portable AP [...] intact and normal for the patient's age. Procedure Note Lorena Dewey MD - 03/29/2025 INDICATION: Chest pain FINDINGS: Single portable AP view of the chest obtained. Compared tomultiple prior studies most recent from August 21, 2022. Emphysematous changes. Increased airspace disease within the rightperihilar upper lobe as well as right infrahilar lower lobe may representinfiltrates. Small right pleural effusion suspected. No pneumothorax orpneumomediastinum. Heart normal in size and shape. Bony structures are grossly intact and normal for the patient's age. IMPRESSION: Severe emphysematous changes with right upper and lower lobe infiltratesand small right pleural effusion. -------- FINAL REPORT -------- Dictated By: Lorena Dewey Dictated Date: 03/29/2025 12:25 ET Assigned Physician: Lorena Dewey Reviewed and Electronically Signed By: Lorena Dewey Signed Date: 03/29/2025 12:26 ET Workstation ID: [id number] Transcribed By: Self Edit Transcribed Date: 03/29/2025 12:25 ET Gee Capone MD IMG XR PROCEDURES Final Result * CT Head wo Contrast (03/29/2025 10:39 AM EST) Anatomical Region Laterality Modality Head and Neck Computed Tomogra phy 03/29/2025 11:0 0 AM EST Impressions 03/29/2025 11:01 AM EST No evidence of acute intracranial process on noncontrast head CT. Atrophy and age-related changes. No significant change from the prior study. -------- FINAL REPORT -------- Dictated By: Lorena Dewey Dictated Date: 03/29/2025 11:00 ET Assigned Physician: Lorena Dewey Reviewed and Electronically Signed By: Lorena Dewey Signed Date: 03/29/2025 11:01 ET Workstation ID: [id number] Transcribed By: Self Edit Transcribed Date: 03/29/2025 11:00 ET Narrative 03/29/2025 11:01 AM EST INDICATION: Generalized weakness, fall Technique: Axial images were obtained from the skull base to the vertex without contrast enhancement. Coronal and sagittal reformats obtained. Dose reduction technique: ASIR (Adaptive statistical iterative reconstruction) Dose: total exam DLP 808 mGY per cm Comparison: Compared to multiple prior studies most recent from August 21, 2022. FINDINGS: Intracranial contents: No acute intracranial hemorrhage, midline shift or mass-effect. The ventricles, sulci, sylvian fissures and basilar cisterns are symmetrically enlarged most consistent with atrophy. Mild periventricular white matter changes are most consistent with small vessel ischemic disease. There are no abnormal intra or extra-axial fluid collections. Bony structures/soft tissues: Within normal limits for the patient's age. Sinuses: paranasal sinuses are clear. Procedure Note Lorena Dewey MD - 03/29/2025 INDICATION: Generalized weakness, fall Technique: Axial images were obtained from the skull base to the vertexwithout contrast enhancement. Coronal and sagittal reformats obtained. Dose reduction technique: ASIR (Adaptive statistical iterativereconstruction) Dose: total exam DLP 808 mGY per cm Comparison: Compared to multiple prior studies most recent from August. FINDINGS: Intracranial contents: No acute intracranial hemorrhage, midline shift ormass- effect. The ventricles, sulci, sylvian fissures and basilar cisternsare symmetrically enlarged most consistent with atrophy. Mildperiventricular white matter changes are most consistent with small vesselischemic disease. There are no abnormal intra or extra-axial fluidcollections. Bony structures/soft tissues: Within normal limits for the patient'bill. Sinuses: paranasal sinuses are clear. IMPRESSION: No evidence of acute intracranial process on noncontrast head CT. Atrophy and age-related changes. No significant change from the prior study. -------- FINAL REPORT -------- Dictated By: Lorena Dewey Dictated Date: 03/29/2025 11:00 ET Assigned Physician: Lorena Dewey Reviewed and Electronically Signed By: Lorena Dewey Signed Date: 03/29/2025 11:01 ET Workstation ID: [id number] Transcribed By: Self Edit Transcribed Date: 03/29/2025 11:00 ET Gee Capone MD [facility] CT PROCEDURES Final Result * Respiratory virus panel molecular study (03/29/2025 10:13 AM EST) Adenovirus Detection by PCR Not Detected Not Detected LAB MICROBIOLOGY METHOD 03/29/2025 11:58 AM [facility] Influenza A PCR Not Detected Not Detected LAB MICROBIOLOGY METHOD 03/29/2025 11:58 AM [facility] Influenza B PCR Not Detected Not Detected LAB MICROBIOLOGY METHOD 03/29/2025 11:58 AM [facility] Coronavirus 229E Not Detected Not Detected LAB MICROBIOLOGY METHOD 03/29/2025 11:58 AM [facility] Coronavirus HKU1 Not Detected Not Detected LAB MICROBIOLOGY METHOD 03/29/2025 11:58 AM [facility] Coronavirus OC43 Not Detected Not Detected LAB MICROBIOLOGY METHOD 03/29/2025 11:58 AM [facility] Coronavirus NL63 Not Detected Not Detected LAB MICROBIOLOGY METHOD 03/29/2025 11:58 AM [facility] Parainfluenza Virus 1 Not Detected Not Detected LAB MICROBIOLOGY METHOD 03/29/2025 11:58 AM [facility] Parainfluenza Virus 2 Not Detected Not Detected LAB MICROBIOLOGY METHOD 03/29/2025 11:58 AM [facility] Parainfluenza Virus 3 Not Detected Not Detected LAB MICROBIOLOGY METHOD 03/29/2025 11:58 AM [facility] Parainfluenza Virus 4 Not Detected Not Detected LAB MICROBIOLOGY METHOD 03/29/2025 11:58 AM [facility] RSV PCR Not Detected Not Detected LAB MICROBIOLOGY METHOD 03/29/2025 11:58 AM [facility] Human Metapneumovirus A and B Not Detected Not Detected LAB MICROBIOLOGY METHOD 03/29/2025 11:58 AM [facility] Rhinovirus/Entero virus Not Detected Not Detected LAB MICROBIOLOGY METHOD 03/29/2025 11:58 AM [facility] Bordetella pertussis Not Detected Not Detected LAB MICROBIOLOGY METHOD 03/29/2025 11:58 AM [facility] Bordetella parapertussis Not Detected Not Detected LAB MICROBIOLOGY METHOD 03/29/2025 11:58 AM [facility] Mycoplasma pneumo by PCR Not Detected Not Detected LAB MICROBIOLOGY METHOD 03/29/2025 11:58 AM [facility] Chlamydia pneumoniae Not Detected Not Detected LAB MICROBIOLOGY METHOD 03/29/2025 11:58 AM [facility] SARS COV-2 Not Detected Not Detected LAB MICROBIOLOGY METHOD 03/29/2025 11:58 AM [facility] Swab Both anterior nares / Unknown Non-blood Collection / Unknown 03/29/2025 10:13 AM EST 03/29/2025 11:00 AM EST [facility] - 03/29/2025 11:58 AM EST Testing was performed using the [employer] Respiratory Pathogen PCR Assay. All results must be correlated with the clinical findings. Results should not be used as the sole basis for diagnosis. False Negative results may occur from the presence of sequence variants in the region targeted by the assay or the presence of inhibitors. Results may be affected by concurrent antiviral/antimicrobial therapy or levels of organisms that are below the limit of detection. Gee Capone MD LAB MICROBIOLOGY - GENERAL ORD ERABLES Final Result [facility] [address] [place] [address], * (ABNORMAL) Manual differential (03/29/2025 10:11 AM EST) Neutrophils % 82.0 % LAB HEMETOLOGY METHOD 03/29/2025 12:17 PM [facility] Bands % 3.0 % LAB HEMETOLOGY METHOD 03/29/2025 12:17 PM [facility] Lymphocytes % 11.0 % LAB HEMETOLOGY METHOD 03/29/2025 12:17 PM [facility] Monocytes % 4.0 % LAB HEMETOLOGY METHOD 03/29/2025 12:17 PM [facility] Eosinophils % 0.0 % LAB HEMETOLOGY METHOD 03/29/2025 12:17 PM [facility] Basophils % 0.0 % LAB HEMETOLOGY METHOD 03/29/2025 12:17 PM [facility] Neutrophils Absolute Manual 9.27(H) 1.50 - 7.00 K/mcL LAB HEMETOLOGY METHOD 03/29/2025 12:17 PM [facility] Bands Absolute Manual 0.34(H) 0.00 - 0.00 K/mcL LAB HEMETOLOGY METHOD 03/29/2025 12:17 PM [facility] Lymphocytes Absolute 1.24 1.00 - 5.00 K/mcL LAB HEMETOLOGY METHOD 03/29/2025 12:17 PM EST [facility] Monocytes Absolute Manual 0.45 0.20 - 1.00 K/mcL LAB HEMETOLOGY METHOD 03/29/2025 12:17 PM EST [facility] Eosinophils Absolute Manual 0.00 0.00 - 0.50 K/mcL LAB HEMETOLOGY METHOD 03/29/2025 12:17 PM EST [facility] Basophils Absolute Manual 0.00 0.00 - 0.20 K/mcL LAB HEMETOLOGY METHOD 03/29/2025 12:17 PM EST [facility] Rbc Morphology Consistent with indices Consistent with indices, Normal for [place] LAB HEMETOLOGY METHOD 03/29/2025 12:17 PM EST [facility] Platelet Morphology - WAM See Note(A) Normal LAB HEMETOLOGY METHOD 03/29/2025 12:17 PM EST [facility] Comment:PLT: Normal Blood Venous blood specimen / Unknown Venipuncture / Unknown 03/29/2025 10:11 AM EST 03/29/2025 11:00 AM EST us Gee Capone MD LAB BLOOD ORDERABLES Final Res ult [facility] [address] [place] [address], * Lipase (03/29/2025 10:11 AM EST) Lipase 17 12 - 53 unit/L 03/29/2025 11:26 AM EST [facility] Blood Venous blood specimen / Unknown Venipuncture / Unknown 03/29/2025 10:11 AM EST 03/29/2025 11:00 AM EST us Gee Capone MD LAB BLOOD ORDERABLES Final Res ult [facility] [address] [place] [address], [place] [phone] * (ABNORMAL) Comprehensive metabolic panel (03/29/2025 10:11 AM EST) Sodium 141 133 - 145 mmol/L 03/29/2025 11:26 AM [facility] Potassium 5.1 3.5 - 5.5 mmol/L 03/29/2025 11:26 AM [facility] Chloride 102 96 - 110 mmol/L 03/29/2025 11:26 AM [facility] CO2 30 21 - 32 mmol/L 03/29/2025 11:26 AM [facility] Anion Gap 9 3 - 11 03/29/2025 11:26 AM [facility] Glucose 119(H) 70 - 100 mg/dL 03/29/2025 11:26 AM [facility] BUN 42(H) 5 - 25 mg/dL 03/29/2025 11:26 AM [facility] Creatinine 2.11(H) 0.70 - 1.30 mg/dL 03/29/2025 11:26 AM [facility] eGFR 30(L) >=60 mL/min/1. 73m2 03/29/2025 11:26 AM [facility] Comment:Calculation based on the Chronic Kidney Disease Epidemiology Collaboration (CKD-EPI) equation refit without adjustment for race. BUN/Creatinine Ratio 19.9 03/29/2025 11:26 AM [facility] Calcium 11.0(H) 8.5 - 10.5 mg/dL 03/29/2025 11:26 AM [facility] AST (SGOT) 48(H) 10 - 42 unit/L 03/29/2025 11:26 AM [facility] ALT (SGPT) 33 10 - 60 unit/L 03/29/2025 11:26 AM EST [facility] Alkaline Phosphatase 103 42 - 121 unit/L 03/29/2025 11:26 AM EST [facility] Total Protein 6.0 6.0 - 8.0 g/dL 03/29/2025 11:26 AM EST [facility] Albumin 3.6 3.2 - 5.0 g/dL 03/29/2025 11:26 AM [facility] Total Bilirubin 0.6 0.0 - 1.4 mg/dL 03/29/2025 11:26 AM [facility] Blood Venous blood specimen / Unknown Venipuncture / Unknown 03/29/2025 10:11 AM EST 03/29/2025 11:00 AM EST Gee Capone MD LAB BLOOD ORDERABLES Final Res ult [facility] [address] [place] [address], * Falls Risk Assessment (02/07/2024) Falls Risk Assessment abstracted Historical Provider HEALTH MAINTENANCE Final Result * Depression Screening (02/07/2024) Depression Screening abstracted Historical Provider HEALTH MAINTENANCE Final Result from Last 3 Months or Most Recently Relevant to Health Maintenance Insurance MEDICARE [facility] Advance Directives Documents on File Type Date Recorded 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 Do not modify or discontinue any currently active code status orders. * No CPR/Do Not Intubate Date Activated Date Inactivated Comments 03/29/2025 1:42 PM 03/31/2025 7:24 PM This code status was ascertained in the following way: Code status discussion: per living will or healthcare instructions To update the patient's code status, place a code status order. Do not modify or discontinue any currently active code status orders. * No CPR/Do Not Intubate Date Activated Date Inactivated Comments 09/30/2024 11:04 AM 03/29/2025 9:17 AM This code status was ascertained in the following way: Code status discussion: discussion with patient To update the patient's code status, place a code status order. Do not modify or discontinue any currently active code status orders. DNR /DNI Healthcare Agents on File Name Relationship Healthcare Agent Relationshi p Communication Moreno Jeffries [facility] Health Care Agent Roldan Jeffries [facility] Health Care Agent Care Teams Tube Lancer Relationship Specialty Start Date End Date Clemencia Gorman MD [address] [place] [id number] PCP - General 10/01/23
--- OUTSIDE RECORDS SUMMARY | 2025-04-07 07:12 | XMS_ITS | Encounter Summary ---
Author Organization [facility] Address [address] [place] [address] Care Team Providers Care Deck Builder Name Role Phone Clemencia Gorman MD Primary Care Provider Reason for Visit * Reason Onset Date Comments vna call 04/02/2025 Encounter Details Date Type Department Care Team ([facility] st Contact Info) Description 04/02/2025 Telephone Adult Medicine [facility] [address] [place] [address] Clemencia Gorman MD [address] [place] [address] Social History Tobacco Use Types Packs/Day Years [...] care for your loved ones. 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 * Richard Hansen RN - 04/02/2025 1:07 PM EST Fyi, pt went to [facility] * Pete Danielson - 04/02/2025 1:03 PM EST [facility] CALL Which [facility] office is calling? Jose Fish Full name of caller: Kelly The caller is A nurse Is the caller at the patients home?: no Reason for call: FYI Calling to inform she was supposed to see pt today for an intake visit. Pt wasnot in the best shape when arriving, called EMS and sent pt back to hospital. Pt was released too soon. Does caller need an urgent call back? no Was CONTACT Telephone # obtained above?: yes Fax #: documented in this encounter Plan of Treatment Not on file documented as of this encounter Visit Diagnoses Not on filedocumented in this encounter Care Teams Deck Builder Relationship Specialty Start Date End Date Clemencia Gorman MD [address] [place] [id number] PCP - General 10/01/23 documented as of this encounter
--- OUTSIDE RECORDS SUMMARY | 2025-04-07 07:12 | XMS_ITS ---
Author Name [facility] Organization Unknown Care Team Organization Name Specialty Phone Email Start Date End Da te [facility] ACO 12/03/2024 [facility] Francisca Campbell Primary Care 12/21/2022 024 [facility] Michelle Barber DO Primary Care 09/22/202211/14 [facility] Osbaldo Beltran Primary Care 02/21/2022 12/03/2023
[2025-04-07 07:36] LABS: Hematocrit 33.4 % (42.0-52.0); Hemoglobin 11.4 g/dl (14.0-18.0); Imm Gran Abs Auto 0.02 X10*3/uL (0.00-0.03); Imm Gran Pct Auto 0.3 % (0.0-0.4); Lymphocytes Absolute Auto 1.1 X10*3/uL (1.2-4.9); Mean Corpuscular HGB Conc 34.1 g/dl (31.0-36.0); Mean Corpuscular Hemoglobin 33.3 pg (27.0-33.0); Mean Corpuscular Volume 97.7 fL (80.0-98.0); NRBC Abs Auto 0.000 X10*3/uL (0.0-0.012); NRBC Pct Auto 0.0 /100WBC (0.0-0.2); Platelet Count 203 X10*3/uL (160-400); Red Blood Count 3.42 X10*6/uL (4.60-5.80); White Blood Count 7.4 X10*3/uL (4.8-10.8)
[2025-04-07 07:54] LABS: Alanine Aminotransferase 15 U/L (0-40); Albumin Level 3.1 g/dL (3.5-5.0); Alkaline Phosphatase 76 U/L (39-117); Anion Gap 11 (12-20); Aspartate Amino Transferase 27 U/L (5-37); Blood Urea Nitrogen 25 mg/dL (9-16); Calcium 10.0 mg/dL (8.4-10.2); Carbon Dioxide 28 mmol/L (22-29); Chloride 110 mmol/L (96-108); Estimated Glomerular Filt Rate 48; Potassium 4.6 mmol/L (3.3-5.1); Sodium 144 mmol/L (135-145); Total Protein 5.6 g/dL (6.5-8.0)
== END 2025-04-07 07:05 | disposition home or self-care (01) ==
LOC: HO.MMNH1L 07:04
PROVIDERS: Visit Provider Physician Assistant Medical
DX: Z13.1 Encounter for screening for diabetes mellitus (principal); J18.9 Pneumonia, unspecified organism
CPT/HCPCS: 36415; 80053; 83036; 85025